=== PATIENT | male | born 1960 | race Caucasian/White ===

== ENCOUNTER → 2016-08-25 | Outpatient (CLI) | payer OTHER ==
[2016-08-25 09:47] LABS: CH 39.3; CHCM 36.8; HCT 49.1 % (39.0-53.0); HDW 2.62; HGB 17.4 gm/dL (13.0-17.5); MCH 37.9 pg (25.0-35.0); MCHC 35.4 g/dL (31.0-37.0); MCV 107.2 fL (80.0-100.0); Macrocytosis Moderate; Mean Platelet Volume 7.4; RBC 4.58 m/uL (4.30-5.90); RDW 13.2 % (11.5-15.5); WBC 5.5 k/uL (3.8-10.6)
[2016-08-25 10:35] LABS: ALT 79 U/L (21-72); AST 119 U/L (17-59); Alkaline Phosphatase 140 U/L (38-126); Anion Gap 14 mmol/L; Blood Urea Nitrogen 9 mg/dL (9-20); Calcium 9.8 mg/dL (8.4-10.2); Carbon Dioxide 23 mmol/L (22-30); Chloride 107 mmol/L (98-107); Cholesterol 216 mg/dL (<200); Glucose 103 mg/dL (74-99); HDL Cholesterol 56 mg/dL (40-60); Non-African American GFR(MDRD) >60 (>60 ml/min/1.73 sqM); Potassium 3.9 mmol/L (3.5-5.1); Sodium 144 mmol/L (137-145); Total Bilirubin 1.6 mg/dL (0.2-1.3); Total Protein 7.5 g/dL (6.3-8.2); Triglycerides 317 mg/dL (<150)
[2016-08-25 12:28] LABS: Vitamin B12 264 pg/mL (239-931)
== END | disposition home or self-care (01) ==
LOC: LABWHC1 08:55
PROVIDERS: ATTEND Family Medicine
DX: Z00.00 Encounter for general adult medical examination without abnormal findings (principal); I10 Essential (primary) hypertension; E53.9 Vitamin B deficiency, unspecified; E53.8 Deficiency of other specified B group vitamins
CPT/HCPCS: 36415; 80053; 80061; 82306; 82607; 82746; 84439; 84443; 85027

== ENCOUNTER → 2016-09-07 | Outpatient (CLI) | payer OTHER ==
--- NOTE | 2016-09-07 14:48 | CTL ---
EXAMINATION TYPE: CT Low Dose Lung DATE OF EXAM ORDERED: 09/07/2016 HISTORY: . Lung cancer screening CT DLP: 71.[address] CTDI: 2.0 mGy Automated exposure control for dose reduction was used. SCREENING VISIT: Screening exam COMPARISON: None TECHNIQUE: Low dose computed tomography scan was performed through the chest at 1 mm thick sections a nd reconstructed images in the coronal plane at [address] DIAGNOSTIC QUALITY: Satisfactory FINDINGS: LUNG NODULES: 1. 3 mm subpleural nodule right lung apex. 2. 2 mm subpleural nodule left lung apex. 3. 2 mm nodule posterior segment left upper lobe. 4. Calcified nodule 3 mm posterior segment right upper lobe. 5. 4 mm nodule lateral segment left lower lobe LUNGS: Lungs are clear with no evidence of focal pneumonia, pleural effusion or pneumothorax. Focal area of pleural-based calcification anteriorly within the left upper lobe. Subsegmental linear changes are se en involving both lungs most typical scar or atelectasis. Coronary artery calcification noted. Atherosclerotic change aorta. Proximal ascending aorta measures 4.1 cm compatible with mild aneurysmal dilation. Hypertrophic and degenerative change of the spine. Nonspecific sclerosis of the mid thoracic vertebra l segment IMPRESSION: Benign findings. Multiple pulmonary nodules as numbered above. Additionally there is mild aneurysmal dilation of the ascending aorta. FOLLOW UP CT CHEST RECOMMENDATION: 1 year follow-up CT LUNG RAD: Category 2
== END | disposition home or self-care (01) ==
LOC: RADCTMAIN 12:53
PROVIDERS: ATTEND Family Medicine
DX: Z12.2 Encounter for screening for malignant neoplasm of respiratory organs (principal); R91.8 Other nonspecific abnormal finding of lung field; I71.2 Thoracic aortic aneurysm, without rupture; Z87.891 Personal history of nicotine dependence

== ENCOUNTER → 2016-09-16 | Outpatient (CLI) | payer OTHER ==
--- NOTE | 2016-09-16 07:55 | US ---
EXAMINATION TYPE: US liver DATE OF EXAM: 09/16/2016 COMPARISON: US 06/09 CLINICAL HISTORY: R94.5 Abnormal Liver Function Test. no complaints of pain, abn labs EXAM MEASUREMENTS: Liver Length: 16.7 cm Gallbladder Wall: 0.2 cm CBD: 0.6 cm Right Kidney: 10.6 x 5.2 x 4.6 cm Some exam limitations due to overlying bowel gas. Pancreas: Obscured by bowel gas Liver: somewhat coarse echopattern, otherwise wnl Gallbladder: wnl Evidence for sonographic Duque's sign: no CBD: wnl Right Kidney: there is a lobular cortical appearance at the upper pole ?possible double collecting s ystem IMPRESSION: 1. No suspicious acute changes. 2. Some limitation due to bowel gas.
== END | disposition home or self-care (01) ==
LOC: RADUSWWP 07:29
PROVIDERS: ATTEND Family Medicine
DX: R94.5 Abnormal results of liver function studies (principal)
CPT/HCPCS: 76705

== ENCOUNTER → 2017-01-06 | Outpatient (CLI) | payer OTHER ==
[2017-01-06 12:11] LABS: Non-African American GFR(MDRD) >60 (>60 ml/min/1.73 sqM)
== END | disposition home or self-care (01) ==
LOC: LABWHC1 11:27
PROVIDERS: ATTEND Family Medicine
DX: M54.5 Low back pain (principal)
CPT/HCPCS: 36415; 82565

== ENCOUNTER → 2017-01-09 | Outpatient (CLI) | payer OTHER ==
--- NOTE | 2017-01-09 20:13 | MR ---
EXAMINATION TYPE: MR lumbar spine wo/w con DATE OF EXAM: 01/09/2017 COMPARISON: NONE HISTORY: 56-year-old male with low back pain, prior surgery in 2000 and 2003 Technique: Multiplanar, multisequence images of the lumbar spine were obtained before and after admin istration of 7.5 mL intravenous Gadavist gadolinium contrast FINDINGS: Vertebral body heights are preserved. Mild heterogeneous marrow signal without suspicious bone marrow replacement. Fatty matrix hemangioma within L1 vertebral body. Mild multilevel degenerative disc disease with a disc space narrowing, mild disc desiccation, and bul ging discs. 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 Hypertrophic facet arthropathy especially in the mid to lower lumbar spine. Prior surgery with L5-S1 laminectomy and interbody ankylosis of L5 and S1. Conus medullaris is normal. However, some images suggest clumping of the cauda equina nerve roots wit h decreased intervening CSF signal, for example, axial image 20. Grade 1 anterolisthesis at L4-L5. At T12-L1, no significant canal or foraminal stenosis. At L1-L2, minimal bulging disc without significant canal or foraminal stenosis. At L2-L3, minimal bulging disc with ligamentum flavum thickening and facet arthropathy. Changes resul t in mild spinal canal stenosis with mild left neuroforaminal stenosis. At L3-L4, there is bulging disc with ligamentum flavum thickening and hypertrophic facet arthropathy. Changes result in moderate canal stenosis with mild left greater than right neural foraminal stenosi s. At L4-L5, hypertrophic facet arthropathy with ligamentum flavum thickening, bulging disc, and grade 1 anterolisthesis. Changes result in a severe spinal canal stenosis with moderate to severe right and moderate left neural foraminal stenosis. It likely lateral recess stenosis with impingement of the tr aversing L5 nerve roots. Post surgical change opposite L5 with dorsal decompression of the spinal canal. At L5-S1, there is some enhancing perineural granulation tissue along the traversing right greater th an left S1 nerve roots, axial image 5. There is mild bilateral neural foraminal stenosis. No prevertebral or paravertebral soft tissue abnormality seen. Ectatic upper abdominal aorta at 2.5 c m. IMPRESSION: 1. Status post L5-S1 laminectomy change and interbody ankylosis. There is some perineural enhancing g ranulation tissue along the traversing right greater the left S1 nerve roots at this level, axial bertin ge 5. Mild bilateral neuroforaminal stenosis. 2. At L4-L5, above the vertebral fusion, there is marked hypertrophic facet arthropathy, ligamentum f lavum thickening, bulging disc, and grade 1 anterolisthesis. Changes result in severe spinal canal st enosis with moderate to severe right and moderate left neuroforaminal stenosis. There is also likely impingement of the bilateral traversing L5 nerve roots. 3. Moderate spinal canal stenosis at L3-L4. 4. Some clumped appearance to the cauda equina nerve roots may reflect arachnoiditis.
== END | disposition home or self-care (01) ==
LOC: RADMRIMAIN 11:05
PROVIDERS: ATTEND Family Medicine
DX: M48.061 Spinal stenosis, lumbar region without neurogenic claudication (principal); M43.27 Fusion of spine, lumbosacral region; M53.86 Other specified dorsopathies, lumbar region; M43.16 Spondylolisthesis, lumbar region; M51.26 Other intervertebral disc displacement, lumbar region; Z98.1 Arthrodesis status
CPT/HCPCS: 72158; A9581

== ENCOUNTER → 2017-08-29 | Outpatient (CLI) | payer OTHER ==
--- NOTE | 2017-08-29 14:23 | XR ---
EXAMINATION TYPE: XR chest 2V DATE OF EXAM: 08/29/2017 COMPARISON: NONE HISTORY: Presurgical evaluation TECHNIQUE: Frontal and lateral views of the chest are obtained. FINDINGS: There is no focal air space opacity, pleural effusion, or pneumothorax seen. There is slig ht eventration of the right hemidiaphragm. The cardiac silhouette size is within normal limits. The osseous structures are intact. [id number] multilevel degenerative changes of the thoracic spin e are noted. Acromioclavicular arthropathy is also seen, right greater than left. IMPRESSION: No acute cardiopulmonary process.
[2017-08-29 14:31] LABS: HCT 47.7 % (39.0-53.0); HGB 16.7 gm/dL (13.0-17.5); MCH 36.1 pg (25.0-35.0); MCV 103.3 fL (80.0-100.0); Macrocytosis Slight; Mean Platelet Volume 7.9; Platelet Count 155 k/uL (150-450); RBC 4.61 m/uL (4.30-5.90); RDW 13.2 % (11.5-15.5); WBC 6.9 k/uL (3.8-10.6)
[2017-08-29 14:39] LABS: INR 1.2 (<1.2); Partial Thromboplastin Time 25.1 sec (22.0-30.0); Prothrombin Time 11.2 sec (9.0-12.0)
[2017-08-29 14:48] LABS: Anion Gap 11 mmol/L; Blood Urea Nitrogen 12 mg/dL (9-20); Carbon Dioxide 29 mmol/L (22-30); Chloride 103 mmol/L (98-107); Potassium 4.4 mmol/L (3.5-5.1); Sodium 143 mmol/L (137-145)
[2017-08-29 15:16] LABS: Appearance,Urine Clear (Clear); Bilirubin,Urine 1+ (Negative); Blood,Urine Moderate (Negative); Color,Urine Dark Yellow; Glucose,Urine (UA) Negative (Negative); Ketones,Urine Trace (Negative); Leukocyte Esterase,Urine Negative (Negative); Mucus,Urine Moderate /hpf; Nitrite,Urine Negative (Negative); PH, Urine 6.5 (5.0-8.0); Protein,Urine 2+ (Negative); RBC,Urine 139 /hpf (0-5); Specific Gravity,Urine 1.019 (1.001-1.035); Squamous Epithelial Cell,Urine <1 /hpf (0-4); Urobilinogen,Urine >12.0 mg/dL (<2.0); WBC,Urine 8 /hpf (0-5)
== END | disposition home or self-care (01) ==
LOC: LABWHC1 13:17
PROVIDERS: ATTEND Neurological Surgery
DX: M48.062 Spinal stenosis, lumbar region with neurogenic claudication (principal)
CPT/HCPCS: 36415; 71046; 80051; 81001; 82565; 84520; 85027; 85610; 85730; 93005

== ENCOUNTER → 2017-10-12 | Outpatient (CLI) | payer OTHER ==
[2017-10-12 11:33] LABS: Basophils % (A) 1 %; Eosinophils # (A) 0.2 k/uL (0-0.7); Eosinophils % (A) 3 %; HCT 41.9 % (39.0-53.0); HGB 14.9 gm/dL (13.0-17.5); Lymphocytes # (A) 1.2 k/uL (1.0-4.8); Lymphocytes % (A) 19 %; MCH 37.3 pg (25.0-35.0); MCHC 35.6 g/dL (31.0-37.0); MCV 104.8 fL (80.0-100.0); Macrocytosis Slight; Mean Platelet Volume 7.3; Monocytes # (A) 0.4 k/uL (0-1.0); Monocytes % (A) 7 %; Neutrophils # (A) 4.6 k/uL (1.3-7.7); Neutrophils % (A) 70 %; Platelet Count 142 k/uL (150-450); WBC 6.6 k/uL (3.8-10.6)
== END | disposition home or self-care (01) ==
LOC: LABWHC1 10:53
PROVIDERS: ATTEND Nurse Practitioner Family
DX: Z47.89 Encounter for other orthopedic aftercare (principal); Z98.1 Arthrodesis status
CPT/HCPCS: 36415; 85025

== ENCOUNTER → 2017-12-28 | Outpatient (CLI) | payer OTHER ==
[2017-12-28 14:39] LABS: Basophils # (A) 0.1 k/uL (0-0.2); Basophils % (A) 1 %; Eosinophils # (A) 0.1 k/uL (0-0.7); Eosinophils % (A) 1 %; HCT 48.6 % (39.0-53.0); HGB 16.7 gm/dL (13.0-17.5); Lymphocytes # (A) 1.4 k/uL (1.0-4.8); Lymphocytes % (A) 18 %; MCH 35.7 pg (25.0-35.0); MCHC 34.5 g/dL (31.0-37.0); MCV 103.7 fL (80.0-100.0); Macrocytosis Slight; Mean Platelet Volume 7.5; Monocytes # (A) 0.5 k/uL (0-1.0); Monocytes % (A) 6 %; Neutrophils # (A) 5.9 k/uL (1.3-7.7); Neutrophils % (A) 72 %; Platelet Count 141 k/uL (150-450); RBC 4.69 m/uL (4.30-5.90); WBC 8.1 k/uL (3.8-10.6)
== END | disposition home or self-care (01) ==
LOC: LABWHC1 14:01
PROVIDERS: ATTEND Nurse Practitioner Family
DX: D69.6 Thrombocytopenia, unspecified (principal)
CPT/HCPCS: 36415; 85025

== ENCOUNTER → 2018-04-18 | Outpatient (CLI) | payer OTHER ==
--- NOTE | 2018-04-19 08:26 | CT ---
EXAMINATION TYPE: CT abdomen w con DATE OF EXAM: 04/18/2018 COMPARISON: None HISTORY: RUQ pain, Elevated LFTs CT DLP: 1022 mGycm CONTRAST: CT scan of the abdomen is performed with Oral Contrast and with IV Contrast, patient injected with 1 00 mL of Isovue 300. FINDINGS: LUNG BASES-: No visible nodule. No infiltrate. LIVER/GB: There is hepatomegaly with micronodular appearance felt to reflect cirrhotic liver disease. There is gallbladder distention without cholelithiasis or wall thickening. PANCREAS: No inflammation. No distinct mass. SPLEEN: No splenic enlargement. No lesion seen. ADRENALS: No nodule. No thickening. KIDNEYS/BLADDER: No hydronephrosis. Nonobstructing nephrolithiasis right kidney. No distinct renal m ass. Urinary bladder grossly unremarkable. BOWEL: Normal appendix. Normal bowel caliber. No inflammation. LYMPH NODES: No greater than 1cm abdominal or pelvic lymph nodes are appreciated. AORTA: No significant abnormality. OSSEOUS STRUCTURES: No significant abnormality is seen. OTHER: There is evidence for free fluid throughout the abdomen and. Varices are noted within the calderon gastric and perisplenic regions. IMPRESSION: 1. Findings compatible with cirrhotic liver disease with associated ascites and portal venous hyperte nsion.
== END | disposition home or self-care (01) ==
LOC: RADCTMAIN 16:42
PROVIDERS: ATTEND Family Medicine
DX: R10.11 Right upper quadrant pain (principal)
CPT/HCPCS: 74160; Q9967

== ENCOUNTER 2018-04-20 10:04 | Inpatient (IN) | payer OTHER ==
[2018-04-20] MEDS ORDERED: IPRATROPIUM 0.5 MG/2.5 ML NEBU INHALATION STA (10:20)
[2018-04-20] MEDS ORDERED: ALBUTEROL NEBULIZED 2.5 MG/3 ML INHALATION STA (10:20)
[2018-04-20 10:43] LABS: Basophils # (A) 0.1 k/uL (0-0.2); Basophils % (A) 1 %; Eosinophils # (A) 0.3 k/uL (0-0.7); Eosinophils % (A) 3 %; HCT 44.5 % (39.0-53.0); Lymphocytes # (A) 0.8 k/uL (1.0-4.8); Lymphocytes % (A) 10 %; MCH 38.4 pg (25.0-35.0); MCHC 33.8 g/dL (31.0-37.0); MCV 113.5 fL (80.0-100.0); Macrocytosis Marked; Mean Platelet Volume 8.5; Monocytes # (A) 0.5 k/uL (0-1.0); Monocytes % (A) 6 %; Neutrophils # (A) 5.7 k/uL (1.3-7.7); Neutrophils % (A) 77 %; Platelet Count 107 k/uL (150-450); RBC 3.92 m/uL (4.30-5.90); RDW 13.2 % (11.5-15.5); WBC 7.4 k/uL (3.8-10.6)
[2018-04-20] MEDS ORDERED: THIAMINE 100 MG/ML 2 ML VIAL IM STA (10:47)
[2018-04-20] MEDS ORDERED: LORazepam 2 MG/ML INJ IV PRN ×3 (10:47)
--- NOTE | 2018-04-20 10:52 | ED ---
General Adult HPI - General Chief complaint: Abdominal Pain Stated complaint: Abd Pain Time Seen by Provider: 04/20/18 10:15 Source: patient Mode of arrival: ambulatory Limitations: no limitations - History of Present Illness Initial comments: Dictation was produced using [employer] dictation software. please excuse any grammatical, word or spelling errors. Chief Complaint: 58-year-old male sent in by his primary care physician for abdominal pain. History of Present Illness: Is a 58-year-old male. He states he drinks proximal 1-2 pints of rum daily. Patient was sent in by his PCP for abdominal pain. Last week patient had a CT performed showing a abdominal ascites and findings to suggest liver cirrhosis. Patient denies any fever, chills or night sweats. He states his abdominal pain has been insidious. He reports that his pain is diffuse. Patient has no other complaints at this time. The ROS documented in this emergency department record has been reviewed and confirmed by me. Those systems with pertinent positive or negative responses have been documented in the HPI. All other systems are other negative and/or noncontributory. PHYSICAL EXAM: General Impression: Alert and oriented x3, not in acute distress, icteric HEENT: Normocephalic atraumatic, extra-ocular movements intact, pupils equal and reactive to light bilaterally, mucous membranes moist. Cardiovascular: Heart regular rate and rhythm, S1&S2 audible, no murmurs, rubs or gallops Chest: Lungs clear to auscultation bilaterally, no rhonchi, no wheeze, no rales Abdomen: Distended abdomen, diffuse abdominal tenderness to palpation Musculoskeletal: Pulses present and equal in all extremities, no peripheral edema Motor: no focal deficits noted Neurological: CN II-XII grossly intact, no focal motor or sensory deficits noted , no asterixis Psych: Normal affect and mood ED course: 58-year-old male sent in by primary care physician for increasing abdominal pain and new diagnosis of cirrhosis. Vital signs upon arrival are within acceptable limits. Patient is well-appearing. [facility] bedside ultrasound was performed showing abdominal ascites. Abdomen is tense or patient is not in any respiratory distress. He is a daily alcohol drinker. Patient is high risk for withdrawals.Serial protocol added. Laboratory evaluation obtained. CBC unremarkable. 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 Mild liver failure with INR 1.2. Metabolic panel is grossly unremarkable. Serum alcohol is less than 10. Patient appears comfortable at this time. No signs of withdrawal. Patient admitted to [facility] for GI consultation and likely paracentesis for symptomatically studies. EKG interpretation: Ventricular rate 59, sinus bradycardia, MS interval 114, QS 92, QTC 475. No MS prolongation, no QTC prolongation, no ST or T-wave changes noted. Overall, this EKG is unremarkable - Related Data Home Medications Medication Instructions Recorded Confirmed Metoprolol Tartrate [Lopressor] 100 mg PO DAILY 07/29/13 04/20/18 Omeprazole [PriLOSEC] 20 mg PO DAILY 07/29/13 04/20/18 amLODIPine BESYLATE [Norvasc] 5 mg PO DAILY 07/29/13 04/20/18 Fluticasone Nasal [place] [Flonase 2 spr EA NOSTRIL DAILY 04/20/18 04/20/18 Nasal [place]] HYDROcodone/APAP 10-325MG [[place] 1 tab PO DAILY PRN 04/20/18 04/20/18 10-325] Levothyroxine Sodium [Synthroid] 50 mcg PO DAILY 04/20/18 04/20/18 Meloxicam 15 mg PO DAILY 04/20/18 04/20/18 rOPINIRole HCL [Requip] 0.25 mg PO BID 04/20/18 04/20/18 Allergies Allergy/AdvReac Type Severity Reaction Status Date / Time No Known Allergies Allergy Verified 04/20/18 11:03 Review of Systems ROS Statement: Those systems with pertinent positive or pertinent negative responses have been documented in the HPI. ROS Other: All systems not noted in ROS Statement are negative. 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), gout, hx melanoma History of Any Multi-Drug Resistant Organisms: None Reported Past Surgical History: Back Surgery, Hernia Repair Additional Past Surgical History / Comment(s): back-plate,screws and pins/later removed, melanoma removed from rt hand, colonoscopy Past Anesthesia/Blood Transfusion Reactions: No Reported Reaction Past Psychological History: No Psychological Hx Reported Smoking Status: Current every day smoker Past Alcohol Use History: Daily Past Drug Use History: None Reported - Past Family History Mother Family Medical History: No Reported History General Exam Limitations: no limitations Course Vital Signs 04/20/18 04/20/18 10:06 11:31 Temperature 98.1 F 98.4 F Pulse Rate 87 54 L Respiratory 20 18 Rate Blood Pressure 142/71 143/78 O2 Sat by Pulse 99 Oximetry Medical Decision Making - Lab Data Result diagrams: 04/20/18 10:28 04/20/18 10:28 Lab Results 04/20/18 04/20/18 04/20/18 Range/Units 10:28 10:28 10:28 WBC 7.4 (3.8-10.6) k/uL RBC 3.92 L (4.30-5.90) m/uL Hgb 15.0 (13.0-17.5) gm/dL Hct 44.5 (39.0-53.0) % MCV 113.5 H (80.0-100.0) fL MCH 38.4 H (25.0-35.0) pg MCHC 33.8 (31.0-37.0) g/dL RDW 13.2 (11.5-15.5) % Plt Count 107 L (150-450) k/uL Neutrophils % 77 % Lymphocytes % 10 % Monocytes % 6 % Eosinophils % 3 % Basophils % 1 % Neutrophils # 5.7 (1.3-7.7) k/uL Lymphocytes # 0.8 L (1.0-4.8) k/uL Monocytes # 0.5 (0-1.0) k/uL Eosinophils # 0.3 (0-0.7) k/uL Basophils # 0.1 (0-0.2) k/uL Manual Slide Review Performed Macrocytosis Marked PT 12.6 H (9.0-12.0) sec INR 1.2 H (<1.2) Sodium 137 (137-145) mmol/L Potassium 4.3 (3.5-5.1) mmol/L Chloride 101 (98-107) mmol/L Carbon Dioxide 25 (22-30) mmol/L Anion Gap 11 mmol/L BUN 8 L (9-20) mg/dL Creatinine 0.69 (0.66-1.25) mg/dL Est GFR (CKD-EPI)AfAm >90 (>60 ml/min/1.73 sqM) Est GFR (CKD-EPI)NonAf >90 (>60 ml/min/1.73 sqM) Glucose 106 H (74-99) mg/dL Calcium 9.2 (8.4-10.2) mg/dL Magnesium 1.6 (1.6-2.3) mg/dL Total Bilirubin 7.1 H (0.2-1.3) mg/dL Conjugated Bilirubin 2.3 H (0.0-0.3) mg/dL Unconjugated Bilirubin 2.2 H (0.0-1.1) mg/dL Delta Bilirubin 2.6 H (0.0-0.2) mg/dL AST 190 H (17-59) U/L ALT 76 H (21-72) U/L Alkaline Phosphatase 298 H (38-126) U/L Total Protein 7.9 (6.3-8.2) g/dL Albumin 3.8 (3.5-5.0) g/dL Lipase 197 (23-300) U/L Serum Alcohol <10 mg/dL Disposition Clinical Impression: Cirrhosis Disposition: ADMITTED IP TO THIS HOSP Condition: Fair Referrals: Tricia Blackwell MD [Primary Care Provider] - 1-2 days Decision Time: 12:44
[2018-04-20 10:55] LABS: ALT 76 U/L (21-72); AST 190 U/L (17-59); Albumin 3.8 g/dL (3.5-5.0); Alcohol <10 mg/dL; Alkaline Phosphatase 298 U/L (38-126); Anion Gap 11 mmol/L; Bilirubin, Conjugated 2.3 mg/dL (0.0-0.3); Bilirubin, Delta 2.6 mg/dL (0.0-0.2); Bilirubin,Unconjugated 2.2 mg/dL (0.0-1.1); Blood Urea Nitrogen 8 mg/dL (9-20); Calcium 9.2 mg/dL (8.4-10.2); Carbon Dioxide 25 mmol/L (22-30); Chloride 101 mmol/L (98-107); Glucose 106 mg/dL (74-99); Lipase 197 U/L (23-300); Magnesium 1.6 mg/dL (1.6-2.3); Potassium 4.3 mmol/L (3.5-5.1); Sodium 137 mmol/L (137-145); Total Bilirubin 7.1 mg/dL (0.2-1.3); Total Protein 7.9 g/dL (6.3-8.2)
[2018-04-20 11:20] LABS: INR 1.2 (<1.2); Prothrombin Time 12.6 sec (9.0-12.0)
[2018-04-20] MEDS ORDERED: NALOXONE 0.4 MG/ML 1 ML VIAL IV PRN ×2 (12:20→13:21)
[2018-04-20] MEDS ORDERED: SODIUM CHLORIDE 0.9% 1,000 ML IV SCH (12:30)
--- NOTE | 2018-04-20 13:14 | P.HPIM ---
History of Present Illness H&P Date: 04/20/18 Patient admitted to the hospital with abdominal pain that has been going for the last few weeks that has been getting worse went disease primary care physician ordered a computed tomography scan of the abdomen showed ascites and liver cirrhosis the computed tomography scan was done on Monday patient states that the abdominal pain is still there and the distention is still there but doesn't have any vomiting doesn't have any rectal bleeding at this time states that from time to time he does have episodes of slight rectal bleeding but currently none at this time and denies any black stool denies any confusion Patient drinks alcohol daily for a long time Denies any chest pain or shortness of breath Review of systems and systems has been reviewed all negative and positive findings as per history of present illness Past Medical History: C , CVA/TIA, Hypertension Additional Past Medical History / Comment(s): 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), gout, hx melanoma History of Any Multi-Drug Resistant Organisms: None Reported Past Surgical History: Back Surgery, Hernia Repair Additional Past Surgical History / Comment(s): back-plate,screws and pins/later removed, melanoma removed from rt hand, colonoscopy Past Anesthesia/Blood Transfusion Reactions: No Reported Reaction Past Psychological History: No Psychological Hx Reported Smoking Status: Current every day smoker Past Alcohol Use History: Daily Past Drug Use History: None Reported Constitutional: No acute distress, conversant, pleasant Eyes: , moist conjunctiva, ENMT: Cranial nerves grossly intact Neck: Supple, FROM, no masses, or JVD No carotid bruits No thyromegaly Lungs: Clear to auscultation Cardiovascular: Heart regular in rate and rhythm, No murmurs, gallops, or rubs No peripheral edema Abdominal: Soft distended very minimal epigastric tenderness Skin: Normal temperature, tone, texture, turgor No induration No subcutaneous nodules No rash, lesions No ulcers Extremities: No digital cyanosis No clubbing Pedal pulses intact and symmetrical Radial pulses intact and symmetrical Normal gait and station No calf tenderness Psychiatric:Alert and oriented to person, place and time Appropriate affect Intact judgement Neuro: Generalized weakness Vital Signs - 8 hr 04/20/18 04/20/18 10:06 11:31 Temperature 98.1 F 98.4 F Pulse Rate 87 54 L Respiratory 20 18 Rate Blood Pressure 142/71 143/78 O2 Sat by Pulse 99 Oximetry Laboratory Results - last 24 hr 04/20/18 04/20/18 04/20/18 10:28 10:28 10:28 WBC 7.4 RBC 3.92 L Hgb 15.0 Hct 44.5 MCV 113.5 H MCH 38.4 H MCHC 33.8 RDW 13.2 Plt Count 107 L Neutrophils % 77 Lymphocytes % 10 Monocytes % 6 Eosinophils % 3 Basophils % 1 Neutrophils # 5.7 Lymphocytes # 0.8 L Monocytes # 0.5 Eosinophils # 0.3 Basophils # 0.1 Manual Slide Review Performed Macrocytosis Marked PT 12.6 H INR 1.2 H Sodium 137 Potassium 4.3 Chloride 101 Carbon Dioxide 25 Anion Gap 11 BUN 8 L Creatinine 0.69 Est GFR (CKD-EPI)AfAm >90 Est GFR (CKD-EPI)NonAf >90 Glucose 106 H Calcium 9.2 Magnesium 1.6 Total Bilirubin 7.1 H Conjugated Bilirubin 2.3 H Unconjugated Bilirubin 2.2 H Delta Bilirubin 2.6 H AST 190 H ALT 76 H Alkaline Phosphatase 298 H Total Protein 7.9 Albumin 3.8 Lipase 197 Serum Alcohol <10 Symptomatic ascites likely from liver cirrhosis patient likely need paracentesis we will consult gastroenterology Newly diagnosed liver cirrhosis likely from chronic alcohol abuse Nonspecific abdominal pain likely from distention and abdominal ascites Alcohol abuse no evidence of withdrawals at this time but will put the patient on CIWA protocol Hypertension DVT and GI prophylaxis we will avoid any Lovenox or heparin due to the mild thrombocytopenia from liver cirrhosis History of episodic rectal bleeding currently no evidence of bleeding will monitor GI has been consulted Admit the patient to regular medical floor 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), gout, hx melanoma History of Any Multi-Drug Resistant Organisms: None Reported Past Surgical History: Back Surgery, Hernia Repair Additional Past Surgical History / Comment(s): back-plate,screws and pins/later removed, melanoma removed from rt hand, colonoscopy Past Anesthesia/Blood Transfusion Reactions: No Reported Reaction Past Psychological History: No Psychological Hx Reported Smoking Status: Current every day smoker Past Alcohol Use History: Daily Past Drug Use History: None Reported - Past Family History Mother Family Medical History: No Reported History Medications and Allergies Home Medications Medication Instructions Recorded Confirmed Type Metoprolol Tartrate [Lopressor] 100 mg PO DAILY 07/29/13 04/20/18 History Omeprazole [PriLOSEC] 20 mg PO DAILY 07/29/13 04/20/18 History amLODIPine BESYLATE [Norvasc] 5 mg PO DAILY 07/29/13 04/20/18 History Fluticasone Nasal [place] [Flonase 2 spr EA NOSTRIL DAILY 04/20/18 04/20/18 History Nasal [place]] HYDROcodone/APAP 10-325MG [[place] 1 tab PO DAILY PRN 04/20/18 04/20/18 History 10-325] Levothyroxine Sodium [Synthroid] 50 mcg PO DAILY 04/20/18 04/20/18 History Meloxicam 15 mg PO DAILY 04/20/18 04/20/18 History rOPINIRole HCL [Requip] 0.25 mg PO BID 04/20/18 04/20/18 History Allergies Allergy/AdvReac Type Severity Reaction Status Date / Time No Known Allergies Allergy Verified 04/20/18 11:03 Physical Exam Vitals: Vital Signs Temp Pulse Resp BP Pulse Ox 04/20/18 11:31 98.4 F 54 L 18 143/78 04/20/18 10:06 98.1 F 87 20 142/71 99 Intake and Output 04/19/18 04/20/18 04/20/18 22:59 06:59 14:59 Other: Weight 80.739 kg Results CBC & Chem 7: 04/20/18 10:28 04/20/18 10:28 Labs: Abnormal Lab Results - Last 24 Hours (Table) 04/20/18 04/20/18 04/20/18 Range/Units 10:28 10:28 10:28 RBC 3.92 L (4.30-5.90) m/uL MCV 113.5 H (80.0-100.0) fL MCH 38.4 H (25.0-35.0) pg Plt Count 107 L (150-450) k/uL Lymphocytes # 0.8 L (1.0-4.8) k/uL PT 12.6 H (9.0-12.0) sec INR 1.2 H (<1.2) BUN 8 L (9-20) mg/dL Glucose 106 H (74-99) mg/dL Total Bilirubin 7.1 H (0.2-1.3) mg/dL Conjugated Bilirubin 2.3 H (0.0-0.3) mg/dL Unconjugated Bilirubin 2.2 H (0.0-1.1) mg/dL Delta Bilirubin 2.6 H (0.0-0.2) mg/dL AST 190 H (17-59) U/L ALT 76 H (21-72) U/L Alkaline Phosphatase 298 H (38-126) U/L
[2018-04-20] MEDS ORDERED: ONDANSETRON 4 MG/2 ML VIAL IVP PRN (13:21)
[2018-04-20] MEDS: traMADol 50 MG TAB PO PRN ×2 (13:54→21:36)
[2018-04-20] MEDS ORDERED: FUROSEMIDE 10 MG/ML 4 ML VIAL IV STA (14:51)
[2018-04-20] MEDS: MULTIVITAMINS, THERA 1 EACH TAB PO SCH (16:24)
[2018-04-20] MEDS: PANTOPRAZOLE 40 MG TABLET PO SCH (16:25)
[2018-04-20] MEDS: THIAMINE 100 MG TAB PO SCH (16:25)
[2018-04-20] MEDS: chlordiazePOXIDE 25 MG CAP PO SCH ×2 (16:25→21:36)
[2018-04-20 16:40] VITALS: BMI 26.1
[2018-04-20] MEDS: FUROSEMIDE 10 MG/ML 2 ML VIAL IV SCH (21:36)
[2018-04-21] MEDS: PANTOPRAZOLE 40 MG TABLET PO SCH (06:41)
[2018-04-21] MEDS: LEVOTHYROXINE 50 MCG TAB PO SCH (06:41)
[2018-04-21 07:08] LABS: Basophils % (A) 1 %; Eosinophils # (A) 0.2 k/uL (0-0.7); Eosinophils % (A) 4 %; HCT 42.5 % (39.0-53.0); HGB 13.8 gm/dL (13.0-17.5); Lymphocytes # (A) 1.1 k/uL (1.0-4.8); Lymphocytes % (A) 20 %; MCH 37.3 pg (25.0-35.0); MCHC 32.4 g/dL (31.0-37.0); MCV 115.2 fL (80.0-100.0); Macrocytosis Marked; Mean Platelet Volume 8.8; Monocytes # (A) 0.4 k/uL (0-1.0); Monocytes % (A) 7 %; Neutrophils # (A) 3.7 k/uL (1.3-7.7); Neutrophils % (A) 66 %; RBC 3.69 m/uL (4.30-5.90); RDW 13.4 % (11.5-15.5); WBC 5.6 k/uL (3.8-10.6)
[2018-04-21 07:29] LABS: ALT 62 U/L (21-72); AST 151 U/L (17-59); Albumin 3.2 g/dL (3.5-5.0); Alkaline Phosphatase 255 U/L (38-126); Anion Gap 8 mmol/L; Blood Urea Nitrogen 12 mg/dL (9-20); Calcium 8.6 mg/dL (8.4-10.2); Carbon Dioxide 29 mmol/L (22-30); Chloride 98 mmol/L (98-107); Glucose 82 mg/dL (74-99); Potassium 4.2 mmol/L (3.5-5.1); Sodium 135 mmol/L (137-145); Total Bilirubin 8.3 mg/dL (0.2-1.3); Total Protein 6.8 g/dL (6.3-8.2)
[2018-04-21] MEDS: METOPROLOL TARTRATE 50 MG TAB PO SCH (09:06)
[2018-04-21] MEDS: traMADol 50 MG TAB PO PRN (09:07)
[2018-04-21] MEDS: chlordiazePOXIDE 25 MG CAP PO SCH ×3 (09:07→22:04)
[2018-04-21] MEDS: MULTIVITAMINS, THERA 1 EACH TAB PO SCH (09:07)
[2018-04-21] MEDS: THIAMINE 100 MG TAB PO SCH ×2 (09:07→15:28)
[2018-04-21] MEDS: FUROSEMIDE 10 MG/ML 2 ML VIAL IV SCH ×2 (09:07→22:04)
[2018-04-21] MEDS: FLUTICASONE 50MCG/SPRAY NASAL 16GM EA NOSTRIL SCH (09:08)
[2018-04-21 09:13] LABS: Platelet Count 82 k/uL (150-450)
[2018-04-21 09:16] LABS: Large Platelets Present
--- NOTE | 2018-04-21 10:00 | P.PN ---
Subjective Progress Note Date: 04/21/18 The patient complained of moderate epigastric abdominal pain radiating from the left to the right side of his abdomen, some mild nausea, reports to loose stools. Reports his last drink was on at 10 PM. Patient denies any itchiness. No acute events overnight Objective - Vital Signs Vital signs: Vital Signs Temp 98.2 F 04/21/18 07:55 Pulse 66 04/21/18 08:00 Resp 18 04/21/18 08:00 BP 145/72 04/21/18 07:55 Pulse Ox 97 04/21/18 07:55 Intake & Output 04/20/18 04/21/18 04/21/18 18:59 06:59 18:59 Intake Total 600 40 360 Output Total 600 Balance 600 -560 360 Weight 80.739 kg 78.9 kg Intake: Intake, IV Titration 40 Amount Sodium Chloride 0.9% 1, 40 000 ml @ 20 mls/hr IV . Q24H WANDA Rx#:[id number] Oral 600 360 Output: Urine 600 Other: Voiding Method Urinal Urinal # Voids 1 1 - Exam Constitutional: No acute distress, conversant, pleasant Eyes: Anicteric sclerae, moist conjunctiva, no lid-lag, PERRLA ENMT: NC/AT,Oropharynx clear, no erythema, exudates Neck:Supple, FROM, no masses, or JVD, No carotid bruits; No thyromegaly Lungs: Clear to auscultation, Clear to percussion, Normal respiratory effort, no accessory muscle use Cardiovascular: Heart regular in rate and rhythm, No murmurs, gallops, or rubs no peripheral edema Abdominal: Soft tender to palpation, distended and tight, no guarding, no rebound or rigidity, shifting dullness Skin: Normal temperature, tone, texture, turgor, No induration No subcutaneous nodules, No rash, lesions, No ulcers Extremities:No digital cyanosis No clubbing, Pedal pulses intact and symmetrical Radial pulses intact and symmetrical Normal gait and station, No calf tenderness Psychiatric: Alert and oriented to person, place and time, Appropriate affect Intact judgement Neuro: Muscles Strength 5/5 in all 4 extremities, Sensation to light touch grossly present throughout, Cranial nerves II-XII grossly intact. No focal sensory deficits - Labs CBC & Chem 7: 04/21/18 06:43 04/21/18 06:43 Labs: Abnormal Lab Results - Last 24 Hours (Table) 04/20/18 04/20/18 04/20/18 Range/Units 10:28 10:28 10:28 RBC 3.92 L (4.30-5.90) m/uL MCV 113.5 H (80.0-100.0) fL MCH 38.4 H (25.0-35.0) pg Plt Count 107 L (150-450) k/uL Lymphocytes # 0.8 L (1.0-4.8) k/uL PT 12.6 H (9.0-12.0) sec INR 1.2 H (<1.2) Sodium (137-145) mmol/L BUN 8 L (9-20) mg/dL Glucose 106 H (74-99) mg/dL Total Bilirubin 7.1 H (0.2-1.3) mg/dL Conjugated Bilirubin 2.3 H (0.0-0.3) mg/dL Unconjugated Bilirubin 2.2 H (0.0-1.1) mg/dL Delta Bilirubin 2.6 H (0.0-0.2) mg/dL AST 190 H (17-59) U/L ALT 76 H (21-72) U/L Alkaline Phosphatase 298 H (38-126) U/L Albumin (3.5-5.0) g/dL 04/21/18 04/21/18 Range/Units 06:43 06:43 RBC 3.69 L (4.30-5.90) m/uL MCV 115.2 H (80.0-100.0) fL MCH 37.3 H (25.0-35.0) pg Plt Count 82 L (150-450) k/uL Lymphocytes # (1.0-4.8) k/uL PT (9.0-12.0) sec INR (<1.2) Sodium 135 L (137-145) mmol/L BUN (9-20) mg/dL Glucose (74-99) mg/dL Total Bilirubin 8.3 H (0.2-1.3) mg/dL Conjugated Bilirubin (0.0-0.3) mg/dL Unconjugated Bilirubin (0.0-1.1) mg/dL Delta Bilirubin (0.0-0.2) mg/dL AST 151 H (17-59) U/L ALT (21-72) U/L Alkaline Phosphatase 255 H (38-126) U/L Albumin 3.2 L (3.5-5.0) g/dL Assessment and Plan (1) Alcoholic cirrhosis of liver with ascites Narrative/Plan: * Previous abdominal CT done on 04/18 compatible with liver cirrhosis with associated ascites and portal venous hypertension * Initiated on Lasix and spironolactone * Consult to GI * We'll likely need abdominal paracentesis Current Visit: Yes Status: Acute Code(s): K70.31 - ALCOHOLIC CIRRHOSIS OF LIVER WITH ASCITES SNOMED Code(s): 251504976 (2) Ascites due to alcoholic cirrhosis Narrative/Plan: * Patient will likely need IR consult for ultrasound-guided paracentesis * GI consulted for further recommendations * Continue diuresis with Lasix 20 mg IV twice a day * Place patient on fluid restriction and DC IV fluids Current Visit: Yes Status: Acute Code(s): K70.31 - ALCOHOLIC CIRRHOSIS OF LIVER WITH ASCITES SNOMED Code(s): 6066321508176486 (3) Thrombocytopenia Narrative/Plan: * Likely secondary to alcoholic cirrhosis * No evidence of acute bleed hemoglobin stable * Continue to monitor Current Visit: Yes Status: Acute Code(s): D69.6 - THROMBOCYTOPENIA, UNSPECIFIED SNOMED Code(s): 528621545 (4) Abdominal pain Narrative/Plan: * Initiated patient on oxycodone when necessary for pain Current Visit: Yes Status: Acute Code(s): R10.9 - UNSPECIFIED ABDOMINAL PAIN SNOMED Code(s): 84295534 (5) Alcohol dependence Narrative/Plan: * Continue symptom triggered CIWA protocol * No signs of severe withdrawals as yet currently is still in the window for potentially severe withdrawals * Continue to monitor Current Visit: Yes Status: Acute Code(s): F10.20 - ALCOHOL DEPENDENCE, UNCOMPLICATED SNOMED Code(s): 15643348 Plan: disposition * Anticipated discharge in 2 days
--- NOTE | 2018-04-21 16:39 | P.CONS ---
History of Present Illness - Reason for Consult Consult date: 04/21/18 Ascites, cirrhosis Requesting physician: Tj Lawson - Chief Complaint Abdominal pain and distention - History of Present Illness 58-year-old male with a medical history significant for gout, hypertension, previous melanoma, alcohol abuse and recent diagnosis of cirrhosis who presented to the hospital with complaints of abdominal pain and distention. The patient reports worsening abdominal pain and distention over the past few weeks. He recently had a outpatient computed tomography scan of the abdomen on 04/26/18 poor mastication of his symptoms with findings compatible with cirrhosis, ascites and portal hypertension. A she has a long history of alcohol abuse, reporting daily alcohol use since 1972. Prior to his recent finding on CT the patient denies any prior history of liver disease. He denies any prior paracentesis, upper GI bleeds or confusion consistent with hepatic encephalopathy. The patient did have investigation with an upper endoscopy approximately 7 years ago which she reports was for reflux disease and believes his last colonoscopy was in 2011 or 2012 with no significant findings at that time. He denies any change in his bowel habits, or signs or symptoms of GI bleeding. No fevers, chills or night sweats at home. Review of Systems REVIEW OF SYSTEMS: CONSTITUTIONAL: Denies any fevers, chills, weight change or fatigue. CARDIOVASCULAR: Denies any chest pain, palpitations high or low blood pressures RESPIRATORY: Denies any shortness of breath, hemoptysis or cough. GENITOURINARY: No dysuria or hematuria. MUSCULOSKELETAL: No weakness reported. SKIN: Denies any new rashes or lesions, jaundice or pallor. PSYCHIATRIC: Denies any depression or anxiety. NEUROLOGY: Denies headache, denies any new focal deficits. EARS/NOSE/THROAT: No recent hearing change, congestion, nasal discharge or sore throat. EYES: No pain in eyes, discharge or change in vision. GASTROINTESTINAL: As per HPI. 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), gout, hx melanoma History of Any Multi-Drug Resistant Organisms: None Reported Past Surgical History: Back Surgery, Hernia Repair Additional Past Surgical History / Comment(s): back-plate,screws and pins/later removed, melanoma removed from rt hand, colonoscopy Past Anesthesia/Blood Transfusion Reactions: No Reported Reaction Past Psychological History: No Psychological Hx Reported Smoking Status: Current every day smoker Past Alcohol Use History: Daily Additional Past Alcohol Use History / Comment(s): smoked since 1960s, smokes 1- 2 PPD Past Drug Use History: Marijuana - Past Family History Mother Family Medical History: No Reported History Father History Unknown: Yes Medications and Allergies Home Medications Medication Instructions Recorded Confirmed Type Metoprolol Tartrate [Lopressor] 100 mg PO DAILY 07/29/13 04/20/18 History Omeprazole [PriLOSEC] 20 mg PO DAILY 07/29/13 04/20/18 History amLODIPine BESYLATE [Norvasc] 5 mg PO DAILY 07/29/13 04/20/18 History Fluticasone Nasal [place] [Flonase 2 spr EA NOSTRIL DAILY 04/20/18 04/20/18 History Nasal [place]] HYDROcodone/APAP 10-325MG [[place] 1 tab PO DAILY PRN 04/20/18 04/20/18 History 10-325] Levothyroxine Sodium [Synthroid] 50 mcg PO DAILY 04/20/18 04/20/18 History Meloxicam 15 mg PO DAILY 04/20/18 04/20/18 History rOPINIRole HCL [Requip] 0.25 mg PO BID 04/20/18 04/20/18 History Allergies Allergy/AdvReac Type Severity Reaction Status Date / Time No Known Allergies Allergy Verified 04/20/18 11:03 Physical Exam Vitals: Vital Signs Temp Pulse Resp BP Pulse Ox 04/21/18 15:00 98.2 F 60 16 109/66 94 L 04/21/18 08:00 66 18 04/21/18 07:55 98.2 F 66 18 145/72 97 04/21/18 04:00 97.6 F 67 18 140/70 97 04/21/18 00:00 98.4 F 67 17 119/75 94 L 04/20/18 20:00 97.3 F L 66 18 132/70 93 L Intake and Output 04/21/18 04/21/18 04/21/18 06:59 14:59 22:59 Intake Total 370 Output Total 600 Balance -600 370 Intake: IV 10 Invasive Line 1 10 Oral 360 Output: Urine 600 Other: Voiding Method Urinal Urinal Urinal # Voids 1 1 Weight 78.9 kg On physical examination, patient appears comfortable in no apparent distress. HEAD: Normocephalic, atraumatic. EYES: No scleral icterus. No conjunctival injection. MOUTH: No lesions, tongue midline. NECK: Trachea midline, no gross abnormalities. CHEST: Clear to auscultation with no wheezing or rhonchi appreciated. HEART: Regular rate and rhythm. ABDOMEN: Soft, obese, distended with positive fluid wave. Tender to palpation in all areas of his abdomen. Bowel sounds are positive. No organomegaly. No guarding or rigidity. EXTREMITIES: No pedal edema. SKIN: No rashes, no jaundice. NEUROLOGIC: Alert and oriented x3. No asterixis noted. No focal deficits. Results CBC & Chem 7: 04/21/18 06:43 04/21/18 06:43 Labs: Abnormal Lab Results - Last 24 Hours (Table) 04/21/18 04/21/18 Range/Units 06:43 06:43 RBC 3.69 L (4.30-5.90) m/uL MCV 115.2 H (80.0-100.0) fL MCH 37.3 H (25.0-35.0) pg Plt Count 82 L (150-450) k/uL Sodium 135 L (137-145) mmol/L Total Bilirubin 8.3 H (0.2-1.3) mg/dL AST 151 H (17-59) U/L Alkaline Phosphatase 255 H (38-126) U/L Albumin 3.2 L (3.5-5.0) g/dL CT scan - abdomen: report reviewed (Computed tomography scan of the abdomen with findings consistent with cirrhosis, ascites and portal hypertension.) Assessment and Plan (1) Alcoholic cirrhosis of liver with ascites Narrative/Plan: Patient presenting with reports of worsening abdominal pain and distention, with outpatient computed tomography scan with findings consistent with cirrhosis , portal hypertension and new onset ascites. The patient denies any prior history of cirrhosis or decompensated liver disease with no prior paracentesis, esophageal bleeds from varices, or encephalopathy. The patient reports a history of alcohol abuse with daily consumption of alcohol for over 40 years. Current Visit: Yes Status: Acute Code(s): K70.31 - ALCOHOLIC CIRRHOSIS OF LIVER WITH ASCITES SNOMED Code(s): 511360891 (2) Abdominal pain Current Visit: Yes Status: Acute Code(s): R10.9 - UNSPECIFIED ABDOMINAL PAIN SNOMED Code(s): 39985625 (3) Alcohol dependence Current Visit: Yes Status: Acute Code(s): F10.20 - ALCOHOL DEPENDENCE, UNCOMPLICATED SNOMED Code(s): 21438223 (4) Elevated liver enzymes Narrative/Plan: Elevation in patient's liver enzymes are consistent with his known history of alcoholic cirrhosis Current Visit: Yes Status: Acute Code(s): R74.8 - ABNORMAL LEVELS OF OTHER SERUM ENZYMES SNOMED Code(s): 733357348 Plan: Supportive care Okay for sodium restricted diet Agree with the addition of Lasix 20 mg twice a day and Aldactone 25 mg daily to the patient's medical regimen, can titrate for adequate diuresis We will order ultrasound-guided paracentesis at this time with fluid studies including protein, albumin, cell count and differential and culture Although the patient does not have findings of leukocytosis or fever to suggest spontaneous bacterial peritonitis will add ceftriaxone daily given complaints of abdominal pain until fluid studies from abdomen can be drawn Alcohol abstinence Watch for signs or symptoms of alcohol withdrawal Thank you for allowing us to participate in the care of the patient we will continue to follow
[2018-04-22] MEDS: LEVOTHYROXINE 50 MCG TAB PO SCH (06:03)
[2018-04-22 07:43] LABS: Basophils % (A) 1 %; Eosinophils # (A) 0.2 k/uL (0-0.7); Eosinophils % (A) 4 %; HCT 41.7 % (39.0-53.0); HGB 13.9 gm/dL (13.0-17.5); Lymphocytes # (A) 1.3 k/uL (1.0-4.8); Lymphocytes % (A) 21 %; MCH 37.8 pg (25.0-35.0); MCHC 33.5 g/dL (31.0-37.0); MCV 112.9 fL (80.0-100.0); Macrocytosis Marked; Monocytes # (A) 0.4 k/uL (0-1.0); Monocytes % (A) 6 %; Neutrophils # (A) 3.9 k/uL (1.3-7.7); Neutrophils % (A) 66 %; RBC 3.69 m/uL (4.30-5.90); RDW 13.2 % (11.5-15.5)
[2018-04-22 07:47] LABS: Platelet Count 87 k/uL (150-450)
[2018-04-22 07:55] LABS: ALT 54 U/L (21-72); AST 131 U/L (17-59); Alkaline Phosphatase 244 U/L (38-126); Anion Gap 6 mmol/L; Blood Urea Nitrogen 13 mg/dL (9-20); Calcium 8.5 mg/dL (8.4-10.2); Carbon Dioxide 31 mmol/L (22-30); Chloride 97 mmol/L (98-107); Glucose 85 mg/dL (74-99); Sodium 134 mmol/L (137-145); Total Bilirubin 6.9 mg/dL (0.2-1.3); Total Protein 6.6 g/dL (6.3-8.2)
[2018-04-22] MEDS: MULTIVITAMINS, THERA 1 EACH TAB PO SCH (08:11)
[2018-04-22] MEDS: FUROSEMIDE 10 MG/ML 2 ML VIAL IV SCH ×2 (08:11→22:16)
[2018-04-22] MEDS: chlordiazePOXIDE 25 MG CAP PO SCH ×3 (08:11→22:16)
[2018-04-22] MEDS: PANTOPRAZOLE 40 MG TABLET PO SCH (08:11)
[2018-04-22] MEDS: SPIRONOLACTONE 25 MG TAB PO SCH (08:11)
[2018-04-22] MEDS: THIAMINE 100 MG TAB PO SCH ×2 (08:11→15:52)
[2018-04-22] MEDS: METOPROLOL TARTRATE 50 MG TAB PO SCH (08:11)
[2018-04-22] MEDS: FLUTICASONE 50MCG/SPRAY NASAL 16GM EA NOSTRIL SCH (08:12)
--- NOTE | 2018-04-22 09:16 | P.PN ---
Subjective Progress Note Date: 04/22/18 The patient complained of mild epigastric pain that is tolerable with pain medication, patient reports slight improvement of his abdominal distention, denies shortness of breath Reports his last drink was on at 10 PM. Patient denies any itchiness. No acute events overnight Objective - Vital Signs Vital signs: Vital Signs Temp 98.6 F 04/22/18 07:00 Pulse 76 04/22/18 07:00 Resp 16 04/22/18 07:00 BP 130/69 04/22/18 07:00 Pulse Ox 95 04/22/18 07:00 Intake & Output 04/21/18 04/22/18 04/22/18 18:59 06:59 18:59 Intake Total 370 Balance 370 Intake: IV 10 Invasive Line 1 10 Oral 360 Other: Voiding Method Urinal Urinal # Voids 1 3 # Bowel Movements 1 - Exam Constitutional: No acute distress, conversant, pleasant Eyes: Anicteric sclerae, moist conjunctiva, no lid-lag, PERRLA ENMT: NC/AT,Oropharynx clear, no erythema, exudates Neck:Supple, FROM, no masses, or JVD, No carotid bruits; No thyromegaly Lungs: Clear to auscultation, Clear to percussion, Normal respiratory effort, no accessory muscle use Cardiovascular: Heart regular in rate and rhythm, No murmurs, gallops, or rubs no peripheral edema Abdominal: Soft tender to palpation, marginally improved still distended and tight, no guarding, no rebound or rigidity, shifting dullness Skin: Normal temperature, tone, texture, turgor, No induration No subcutaneous nodules, No rash, lesions, No ulcers Extremities:No digital cyanosis No clubbing, Pedal pulses intact and symmetrical Radial pulses intact and symmetrical Normal gait and station, No calf tenderness Psychiatric: Alert and oriented to person, place and time, Appropriate affect Intact judgement Neuro: Muscles Strength 5/5 in all 4 extremities, Sensation to light touch grossly present throughout, Cranial nerves II-XII grossly intact. No focal sensory deficits - Labs CBC & Chem 7: 04/22/18 07:34 04/22/18 07:34 Labs: Abnormal Lab Results - Last 24 Hours (Table) 04/21/18 04/22/18 04/22/18 Range/Units 06:43 07:34 07:34 RBC 3.69 L 3.69 L (4.30-5.90) m/uL MCV 115.2 H 112.9 H (80.0-100.0) fL MCH 37.3 H 37.8 H (25.0-35.0) pg Plt Count 82 L 87 L (150-450) k/uL Sodium 134 L (137-145) mmol/L Chloride 97 L (98-107) mmol/L Carbon Dioxide 31 H (22-30) mmol/L Total Bilirubin 6.9 H (0.2-1.3) mg/dL AST 131 H (17-59) U/L Alkaline Phosphatase 244 H (38-126) U/L Albumin 3.0 L (3.5-5.0) g/dL Assessment and Plan (1) Alcoholic cirrhosis of liver with ascites Narrative/Plan: * Previous abdominal CT done on 04/18 compatible with liver cirrhosis with associated ascites and portal venous hypertension * Initiated on Lasix and spironolactone * Appreciate GI recommendations patient initiated on ceftriaxone for SBP prophylaxis * Ultrasound-guided abdominal paracentesis ordered plans for fluid analysis studies Current Visit: Yes Status: Acute Code(s): K70.31 - ALCOHOLIC CIRRHOSIS OF LIVER WITH ASCITES SNOMED Code(s): 662014488 (2) Ascites due to alcoholic cirrhosis Narrative/Plan: * Patient will likely need IR consult for ultrasound-guided paracentesis * GI consulted for further recommendations * Continue diuresis with Lasix 20 mg IV twice a day * Place patient on fluid restriction and DC IV fluids Current Visit: Yes Status: Acute Code(s): K70.31 - ALCOHOLIC CIRRHOSIS OF LIVER WITH ASCITES SNOMED Code(s): 8340060913750830 (3) Thrombocytopenia Narrative/Plan: * Likely secondary to alcoholic cirrhosis * No evidence of acute bleed hemoglobin stable and trending up from 82-87 * Continue to monitor Current Visit: Yes Status: Acute Code(s): D69.6 - THROMBOCYTOPENIA, UNSPECIFIED SNOMED Code(s): 204360314 (4) Abdominal pain Narrative/Plan: * Initiated patient on oxycodone when necessary for pain Current Visit: Yes Status: Acute Code(s): R10.9 - UNSPECIFIED ABDOMINAL PAIN SNOMED Code(s): 49356074 (5) Alcohol dependence Narrative/Plan: * Continue symptom triggered CIWA protocol * No signs of severe withdrawals as yet currently is still in the window for potentially severe withdrawals * Continue to monitor Current Visit: Yes Status: Acute Code(s): F10.20 - ALCOHOL DEPENDENCE, UNCOMPLICATED SNOMED Code(s): 55659432 Plan: disposition * Anticipated discharge in 2 days
--- NOTE | 2018-04-22 20:01 | P.PN ---
Subjective Progress Note Date: 04/22/18 Principal diagnosis: Alcoholic cirrhosis with ascites Patient reports he is feeling well. He feels his abdomen is still distended. He is urinating well on diuretic therapy. Objective - Vital Signs Vital signs: Vital Signs Temp 98.2 F 04/22/18 14:15 Pulse 64 04/22/18 14:15 Resp 16 04/22/18 14:15 BP 136/72 04/22/18 14:15 Pulse Ox 97 04/22/18 14:15 Intake & Output 04/22/18 04/22/18 04/23/18 06:59 18:59 06:59 Intake Total 200 Balance 200 Intake: Oral 200 Other: Voiding Method Urinal # Voids 3 1 # Bowel Movements 1 - Exam On physical examination, patient appears comfortable in no apparent distress. HEAD: Normocephalic, atraumatic. EYES: Mild scleral icterus. No conjunctival injection. MOUTH: No lesions, tongue midline. NECK: Trachea midline, no gross abnormalities. CHEST: Clear to auscultation with no wheezing or rhonchi appreciated. HEART: Regular rate and rhythm. ABDOMEN: Soft, distended with positive fluid wave. Bowel sounds are positive. No organomegaly. No guarding or rigidity. EXTREMITIES: No pedal edema. SKIN: No rashes, mild jaundice. NEUROLOGIC: Alert and oriented x3. No asterixis noted. No focal deficits. - Labs CBC & Chem 7: 04/22/18 07:34 04/22/18 07:34 Labs: Abnormal Lab Results - Last 24 Hours (Table) 04/22/18 04/22/18 Range/Units 07:34 07:34 RBC 3.69 L (4.30-5.90) m/uL MCV 112.9 H (80.0-100.0) fL MCH 37.8 H (25.0-35.0) pg Plt Count 87 L (150-450) k/uL Sodium 134 L (137-145) mmol/L Chloride 97 L (98-107) mmol/L Carbon Dioxide 31 H (22-30) mmol/L Total Bilirubin 6.9 H (0.2-1.3) mg/dL AST 131 H (17-59) U/L Alkaline Phosphatase 244 H (38-126) U/L Albumin 3.0 L (3.5-5.0) g/dL Assessment and Plan (1) Alcoholic cirrhosis of liver with ascites Narrative/Plan: Patient presenting with reports of worsening abdominal pain and distention, with outpatient computed tomography scan with findings consistent with cirrhosis , portal hypertension and new onset ascites. The patient denies any prior history of cirrhosis or decompensated liver disease with no prior paracentesis, esophageal bleeds from varices, or encephalopathy. The patient reports a history of alcohol abuse with daily consumption of alcohol for over 40 years. Current Visit: Yes Status: Acute Code(s): K70.31 - ALCOHOLIC CIRRHOSIS OF LIVER WITH ASCITES SNOMED Code(s): 678123701 (2) Abdominal pain Current Visit: Yes Status: Acute Code(s): R10.9 - UNSPECIFIED ABDOMINAL PAIN SNOMED Code(s): 25844707 (3) Alcohol dependence Current Visit: Yes Status: Acute Code(s): F10.20 - ALCOHOL DEPENDENCE, UNCOMPLICATED SNOMED Code(s): 98555432 (4) Elevated liver enzymes Narrative/Plan: Elevation in patient's liver enzymes are consistent with his known history of alcoholic cirrhosis Current Visit: Yes Status: Acute Code(s): R74.8 - ABNORMAL LEVELS OF OTHER SERUM ENZYMES SNOMED Code(s): 633327342 Plan: Supportive care Okay for sodium restricted diet Agree with the addition of Lasix 20 mg twice a day and Aldactone 25 mg daily to the patient's medical regimen, can titrate for adequate diuresis Ultrasound-guided paracentesis at this time with fluid studies including protein , albumin, cell count and differential and culture Antibiotic therapy for SBP prophylaxis Alcohol abstinence Watch for signs or symptoms of alcohol withdrawal Thank you for allowing us to participate in the care of the patient we will continue to follow
[2018-04-22] MEDS: traMADol 50 MG TAB PO PRN (22:27)
[2018-04-23] MEDS: LEVOTHYROXINE 50 MCG TAB PO SCH (06:09)
[2018-04-23] MEDS: PANTOPRAZOLE 40 MG TABLET PO SCH (08:56)
[2018-04-23] MEDS: MULTIVITAMINS, THERA 1 EACH TAB PO SCH (08:56)
[2018-04-23] MEDS: THIAMINE 100 MG TAB PO SCH ×2 (08:56→16:44)
[2018-04-23] MEDS: SPIRONOLACTONE 25 MG TAB PO SCH (08:56)
[2018-04-23] MEDS: METOPROLOL TARTRATE 50 MG TAB PO SCH (08:56)
[2018-04-23] MEDS: FLUTICASONE 50MCG/SPRAY NASAL 16GM EA NOSTRIL SCH (08:57)
[2018-04-23] MEDS: FUROSEMIDE 10 MG/ML 2 ML VIAL IV SCH (08:57)
[2018-04-23] MEDS: traMADol 50 MG TAB PO PRN (09:00)
[2018-04-23] MEDS: chlordiazePOXIDE 25 MG CAP PO SCH ×2 (09:01→16:44)
[2018-04-23 09:44] LABS: Basophils % (A) 1 %; Eosinophils # (A) 0.1 k/uL (0-0.7); Eosinophils % (A) 2 %; HCT 39.5 % (39.0-53.0); HGB 13.4 gm/dL (13.0-17.5); Lymphocytes # (A) 0.8 k/uL (1.0-4.8); Lymphocytes % (A) 15 %; MCH 37.6 pg (25.0-35.0); MCHC 33.9 g/dL (31.0-37.0); Macrocytosis Marked; Mean Platelet Volume 8.8; Monocytes # (A) 0.3 k/uL (0-1.0); Monocytes % (A) 6 %; Neutrophils # (A) 3.7 k/uL (1.3-7.7); Neutrophils % (A) 74 %; RBC 3.56 m/uL (4.30-5.90); RDW 13.4 % (11.5-15.5)
[2018-04-23 09:51] LABS: Platelet Count 83 k/uL (150-450)
[2018-04-23 09:57] LABS: ALT 53 U/L (21-72); AST 110 U/L (17-59); Albumin 2.9 g/dL (3.5-5.0); Alkaline Phosphatase 206 U/L (38-126); Anion Gap 4 mmol/L; Blood Urea Nitrogen 14 mg/dL (9-20); Calcium 8.9 mg/dL (8.4-10.2); Carbon Dioxide 30 mmol/L (22-30); Chloride 100 mmol/L (98-107); Glucose 134 mg/dL (74-99); Potassium 3.7 mmol/L (3.5-5.1); Sodium 134 mmol/L (137-145); Total Bilirubin 5.8 mg/dL (0.2-1.3); Total Protein 6.3 g/dL (6.3-8.2)
[2018-04-23 10:12] LABS: INR 1.4 (<1.2); Prothrombin Time 13.9 sec (9.0-12.0)
--- NOTE | 2018-04-23 10:31 | US ---
EXAMINATION TYPE: US abdomen limited DATE OF EXAM: 04/23/2018 COMPARISON: NONE CLINICAL HISTORY: ascites. Moderate fluid seen on right. Fluid is very lateral, almost in patients side to scan last picture. IMPRESSION: 1. Ascites
[2018-04-23 15:33] VITALS: RESP 16
[2018-04-23 16:32] VITALS: BP 147/80; PULSE 65; TEMP 97.7
[2018-04-23 18:28] LABS: Appearance,BF Hazy; Color,BF Yellow
[2018-04-23 18:40] LABS: Nucleated Cells, Body Fluid 160 /uL; RBC, Body Fluid 60 /uL
[2018-04-23 18:42] LABS: Mononuclear WBC,Body Fluid 95 %; Polynuclear WBC,Body Fluid 5 %; Total Cells Counted,Body Fluid 100
[2018-04-24 04:51] LABS: Total Protein, Body Fluid 1132 mg/dL
--- NOTE | 2018-04-24 09:57 | US ---
Therapeutic paracentesis. DATE OF EXAM: 04/23/2018 CLINICAL HISTORY: Ascites The procedure was discussed with the patient. The risks, complications, benefits, and alternatives we re discussed and any questions were answered. Informed consent was obtained. The patient was placed s upine on the ultrasound table and prepped and draped in the usual sterile fashion. All elements of maximal barrier technique were utilized. Under ultrasound guidance, access into the right lower quadrant was obtained, via the paracentesis catheter system and direct ultrasound guidanc e. Approximately 2.3 liters of straw-colored fluid was removed. The patient was stable throughout the pr ocedure and remained stable upon discharge from Department of Radiology. IMPRESSION: Successful therapeutic paracentesis under ultrasound guidance.
--- NOTE | 2018-04-24 11:53 | P.DS ---
Providers Date of admission: 04/21/18 11:04 Expected date of discharge: 04/24/18 Attending physician: Wang Ugarte MD Consults: 04/20/18 11:12 Consult Physician Routine Consulting Provider: Alan Martinez Consult Reason/Comments: paracentesis Do you want consulting provider notified?: Yes Primary care physician: Tricia Blackwell - Discharge Diagnosis(es) (1) Alcoholic cirrhosis of liver with ascites Status: Acute (2) Ascites due to alcoholic cirrhosis Status: Acute (3) Thrombocytopenia Status: Acute (4) Abdominal pain Status: Acute (5) Alcohol dependence Status: Acute (6) Coagulopathy Status: Acute Hospital Course: The patient is a 58-year-old male with a long-standing history of chronic alcohol dependence relatively recently diagnosed alcoholic liver cirrhosis that presented to the ER with chief complaint of abdominal pain with distention and nausea. Review of his prior CT of abdominal and pelvis indicated findings consistent with cirrhosis, portal hypertension and new onset ascites. The patient was subsequently admitted with plans to have abdominal paracentesis performed with GI in consultation. The patient is also noted to have a coagulopathy and thrombocytopenia related to his alcoholic cirrhosis, but had no signs of bleeding with stabilizing labs. The patient was started on diuretics with Lasix and Aldactone and started on Rocephin for SBP prophylaxis, the patient was seen by Dr. Gonzalez an ultrasound-guided paracentesis by IR was ordered an approximately 2.3 L of straw-colored fluid was removed and sent for analysis. Patient tolerated the procedure without any significant complications and was subsequently discharged home in stable condition and instructed to follow-up with GI Dr. Britt in 2 weeks. Prescriptions for spironolactone and Lasix were E prescribed to his pharmacy Focused abdomen: Soft nontender, slightly distended, no shifting dullness, nonacute abdomen Patient Condition at Discharge: Fair Plan - Discharge Summary Discharge Rx Participant: No New Discharge Prescriptions: New Furosemide [Lasix] 40 mg PO DAILY #30 tablet Spironolactone [Aldactone] 25 mg PO DAILY #30 tab Continue amLODIPine BESYLATE [Norvasc] 5 mg PO DAILY Omeprazole [PriLOSEC] 20 mg PO DAILY Metoprolol Tartrate [Lopressor] 100 mg PO DAILY rOPINIRole HCL [Requip] 0.25 mg PO BID Levothyroxine Sodium [Synthroid] 50 mcg PO DAILY Fluticasone Nasal [place] [Flonase Nasal [place]] 2 spr EA NOSTRIL DAILY HYDROcodone/APAP 10-325MG [[place] 10-325] 1 tab PO DAILY PRN PRN Reason: Pain Discontinued Meloxicam 15 mg PO DAILY Discharge Medication List Metoprolol Tartrate [Lopressor] 100 mg PO DAILY 07/29/13 [History] Omeprazole [PriLOSEC] 20 mg PO DAILY 07/29/13 [History] amLODIPine BESYLATE [Norvasc] 5 mg PO DAILY 07/29/13 [History] Fluticasone Nasal [place] [Flonase Nasal [place]] 2 spr EA NOSTRIL DAILY 04/20/18 [ History] HYDROcodone/APAP 10-325MG [[place] 10-325] 1 tab PO DAILY PRN 04/20/18 [History] Levothyroxine Sodium [Synthroid] 50 mcg PO DAILY 04/20/18 [History] rOPINIRole HCL [Requip] 0.25 mg PO BID 04/20/18 [History] Furosemide [Lasix] 40 mg PO DAILY #30 tablet 04/23/18 [Rx] Spironolactone [Aldactone] 25 mg PO DAILY #30 tab 04/23/18 [Rx] Follow up Appointment(s)/Referral(s): Tricia Blackwell MD [Primary Care Provider] - 1-2 days Joss Gonzalez MD [STAFF PHYSICIAN] - 2 Weeks Patient Instructions/Handouts: Ascites (DC), Paracentesis (DC) Discharge Disposition: HOME SELF-CARE
== END 2018-04-23 17:22 | disposition home or self-care (01) | DRG 433 ==
LOC: EC 10:04 → 3SCARD 13:03 → OBSVTOIN 04-21 11:04 → 4MS4W 04-21 12:17
PROVIDERS: ADMIT Internal Medicine; ATTEND Internal Medicine
PROC: 0W9G3ZZ Drainage of Peritoneal Cavity, Percutaneous Approach (ICD-10-PCS; principal; 2018-04-23)
DX: K70.31 Alcoholic cirrhosis of liver with ascites (principal); K76.6 Portal hypertension; I10 Essential (primary) hypertension; M10.9 Gout, unspecified; D69.6 Thrombocytopenia, unspecified; F10.20 Alcohol dependence, uncomplicated; R79.1 Abnormal coagulation profile; D52.0 Dietary folate deficiency anemia; D69.59 Other secondary thrombocytopenia; E63.9 Nutritional deficiency, unspecified; F17.200 Nicotine dependence, unspecified, uncomplicated; K21.9 Gastro-esophageal reflux disease without esophagitis; Z86.73 Personal history of transient ischemic attack (TIA), and cerebral infarction without residual deficits; Z79.890 Hormone replacement therapy; Z79.899 Other long term (current) drug therapy; Z85.820 Personal history of malignant melanoma of skin
CPT/HCPCS: 36415; 49083; 76705; 80053; 80320; 82042; 82248; 83690; 83735; 84157; 85025; 85610; 87070; 87075; 87205; 89050; 93005; 96372; 96374; 99285

== ENCOUNTER → 2018-06-27 | Outpatient (CLI) | payer OTHER ==
[2018-06-27 14:48] LABS: HCT 39.1 % (39.0-53.0); HGB 13.5 gm/dL (13.0-17.5); MCH 35.4 pg (25.0-35.0); MCHC 34.6 g/dL (31.0-37.0); Macrocytosis Slight; Mean Platelet Volume 8.6; RBC 3.81 m/uL (4.30-5.90); RDW 13.8 % (11.5-15.5)
[2018-06-27 14:56] LABS: MCV 102.5 fL (80.0-100.0)
[2018-06-27 14:57] LABS: Platelet Count 129 k/uL (150-450)
[2018-06-27 19:16] LABS: Albumin 3.7 g/dL (3.80-4.90); Albumin/Globulin Ratio 1.32 (1.60-3.17); Calcium 9.6 mg/dL (8.7-10.3); Globulin 2.8 g/dL (1.6-3.3); Potassium 5.2 mmol/L (3.5-5.5); Total Bilirubin 2.5 mg/dL (0.2-1.2); Total Protein 6.5 g/dL (6.2-8.2)
[2018-06-28 14:25] LABS: T4, Free (Free Thyroxine) 1.2 ng/dL (0.80-1.80)
[2018-06-28 14:34] LABS: Folate, Serum >24.0 ng/mL
[2018-06-28 20:38] LABS: Hemoglobin A1C 4.8 % (4.0-6.0)
== END | disposition home or self-care (01) ==
LOC: LABWHC1 13:26
DX: K70.31 Alcoholic cirrhosis of liver with ascites (principal)
CPT/HCPCS: 36415; 80053; 82105; 82607; 82746; 83036; 84439; 84443; 85027

== ENCOUNTER → 2018-09-03 | Outpatient (CLI) | payer OTHER ==
[2018-09-03 15:05] LABS: HCT 36.8 % (39.0-53.0); HGB 13.1 gm/dL (13.0-17.5); MCH 36.4 pg (25.0-35.0); MCHC 35.5 g/dL (31.0-37.0); MCV 102.4 fL (80.0-100.0); Macrocytosis Slight; Mean Platelet Volume 7.8; Platelet Count 125 k/uL (150-450); RBC 3.59 m/uL (4.30-5.90); RDW 13.5 % (11.5-15.5); WBC 6.6 k/uL (3.8-10.6)
[2018-09-03 15:13] LABS: Partial Thromboplastin Time 28.5 sec (22.0-30.0); Prothrombin Time 10.6 sec (9.0-12.0)
== END | disposition home or self-care (01) ==
LOC: LABWHC1 14:13
PROVIDERS: ATTEND Physical Medicine & Rehabilitation
DX: M54.16 Radiculopathy, lumbar region (principal); M47.817 Spondylosis without myelopathy or radiculopathy, lumbosacral region
CPT/HCPCS: 36415; 85027; 85610; 85730

== ENCOUNTER → 2018-11-15 | Outpatient (CLI) | payer OTHER ==
--- NOTE | 2018-11-16 08:41 | CT ---
EXAMINATION TYPE: CT abdomen wo/w con DATE OF EXAM: 11/15/2018 COMPARISON: 04/18/2018 HISTORY: Alcoholic, cirrhosis of liver. Per Dr. Cr, 40sec/80sec/4 min delay, 4 ml/[address] DLP: 1453.30 mGycm CONTRAST: CT scan of the abdomen and pelvis is performed with Oral Contrast and with IV Contrast, patient injec jonh with 100 mL of Isovue 300. FINDINGS: LUNG BASES-: No visible nodule. No infiltrate. LIVER/GB: Layering gallstones are noted. Nodular hepatic appearance consistent with cirrhosis. No s pace occupying hepatic lesion. Biliary tree is of normal caliber. PANCREAS: No inflammation. No distinct mass. SPLEEN: Splenomegaly measuring 13.6 cm craniocaudal dimension. No lesion seen. ADRENALS: No nodule. No thickening. KIDNEYS/BLADDER: No hydronephrosis. 6 mm nonobstructing calculus right kidney. 2 mm nonobstructing c alculus lower pole left kidney. No distinct renal mass. Urinary bladder grossly unremarkable. BOWEL: Normal appendix. Normal bowel caliber. No inflammation. GENITAL ORGANS: No gross abnormality. LYMPH NODES: No greater than 1cm abdominal or pelvic lymph nodes are appreciated. AORTA: No significant abnormality. OSSEOUS STRUCTURES: No significant abnormality is seen. OTHER: No significant additional abnormality is seen. IMPRESSION: 1. Cirrhotic liver disease. No space-occupying lesion. 2. Splenomegaly. 3. Layering gallstones.
== END | disposition home or self-care (01) ==
LOC: RADCTMAIN 15:06
PROVIDERS: ATTEND Internal Medicine Gastroenterology
DX: K74.60 Unspecified cirrhosis of liver (principal); R16.1 Splenomegaly, not elsewhere classified; K80.20 Calculus of gallbladder without cholecystitis without obstruction
CPT/HCPCS: 74170; Q9967 ×2

== ENCOUNTER → 2018-11-16 | Outpatient (CLI) | payer OTHER ==
[2018-11-16 12:43] LABS: HCT 41.7 % (39.0-53.0); MCH 33.4 pg (25.0-35.0); MCHC 33.5 g/dL (31.0-37.0); MCV 99.8 fL (80.0-100.0); Mean Platelet Volume 7.5; Platelet Count 132 k/uL (150-450); RBC 4.18 m/uL (4.30-5.90); RDW 13.5 % (11.5-15.5); WBC 5.9 k/uL (3.8-10.6)
[2018-11-16 18:41] LABS: African American GFR (CKD) 76.3 (60.0-200.0); Albumin 4.1 g/dL (3.80-4.90); Albumin/Globulin Ratio 1.41 (1.60-3.17); Anion Gap 5.5 mmol/L (4.00-12.00); BUN/Creat Ratio 19.17 Ratio (12.00-20.00); Carbon Dioxide 26.5 mmol/L (21.6-31.8); Globulin 2.9 g/dL (1.6-3.3); Total Bilirubin 1.4 mg/dL (0.2-1.2)
[2018-11-16 18:48] LABS: Alpha Fetoprotein, Tumor Mkr 7.5 ng/mL (0.0-7.9)
== END | disposition home or self-care (01) ==
LOC: LABWHC1 12:02
PROVIDERS: ATTEND Internal Medicine Gastroenterology
DX: K70.30 Alcoholic cirrhosis of liver without ascites (principal)
CPT/HCPCS: 36415; 80053; 80074; 82105; 82140; 85027

== ENCOUNTER 2019-01-02 09:44 | Day surgery (SDC) | payer OTHER ==
[2018-12-31 14:49] VITALS: BMI 26.6
[~2019-01-02 09:44] MED LIST: LACTATED RINGERS 1,000 ML IV SCH; LIDOCAINE 1% 20 ML VIAL (10MG/ML) FOR IV START INTRADERMA PRN
[2019-01-02 10:30] VITALS: RESP 18; TEMP 97.8
[2019-01-02] MEDS ORDERED: LIDOCAINE 1% 20 ML VIAL (10MG/ML) FOR IV START INTRADERMA ONE (10:30)
[2019-01-02] MEDS ORDERED: LACTATED RINGERS 1,000 ML IV ONE (10:30)
[2019-01-02] MEDS ORDERED: PROPOFOL 10 MG/ML 20 ML VIAL IV ONE (10:52)
--- NOTE | 2019-01-02 11:03 | P.PCN ---
Date of Procedure: 01/02/19 Procedure(s) Performed: BRIEF HISTORY: Patient is a 58-year-old, pleasant, male, scheduled for an upper endoscopy as a part of screening for esophageal varices. He was diagnosed with alcohol cirrhosis of the liver recently.. PROCEDURE PERFORMED: Esophagogastroduodenoscopy. PREOPERATIVE DIAGNOSIS: cirrhosis of the liver/screening for esophageal varices. IV sedation per anesthesia. PROCEDURE: After informed consent was obtained, the patient was brought into the endoscopy unit. IV sedation was administered by Anesthesia under continuous monitoring. Initially the Olympus GIF-140 video endoscope was inserted into the mouth. Esophagus intubated without any difficulty. It was gradually advanced i nto the stomach and duodenum and carefully examined. The bulb and the second part of the duodenum appeared normal. The scope at this time was withdrawn to the stomach, adequately insufflated with air, and upon careful examination, mucosa of the antrum had gastritis and biopsies were done from this area. Mucosa in the, body, cardia and the fundus had congested appearance consistent portal hypertensive gastropathy.. The scope was then withdrawn into the esophagus. The GE junction was located at 43 cm from the incisors. The esophagus appeared normal. There were large mid and distal esophageal varices seen and the patient tolerated the procedure well. IMPRESSION: 1. Large esophageal varices in the mid and distal esophagus. 2. Mild to moderate portal hypertensive gastropathy. RECOMMENDATIONS: The findings of this examination were discussed with the patient as well as his family. He'll be started on Inderal 10 mg 3 times daily and titrate to 60 grams daily. He'll be seen in office in 2 months..
[2019-01-02 11:46] VITALS: BP 107/54; PULSE 57
== END 2019-01-02 12:02 | disposition home or self-care (01) ==
LOC: ORWHC2ENDO 09:44
PROVIDERS: ATTEND Internal Medicine Gastroenterology
DX: K70.30 Alcoholic cirrhosis of liver without ascites (principal); I85.10 Secondary esophageal varices without bleeding; K29.50 Unspecified chronic gastritis without bleeding; K76.6 Portal hypertension; K31.89 Other diseases of stomach and duodenum; I10 Essential (primary) hypertension; F17.210 Nicotine dependence, cigarettes, uncomplicated; Z85.820 Personal history of malignant melanoma of skin; M10.9 Gout, unspecified; Z86.73 Personal history of transient ischemic attack (TIA), and cerebral infarction without residual deficits; Z79.82 Long term (current) use of aspirin; Z79.899 Other long term (current) drug therapy; Z79.890 Hormone replacement therapy
CPT/HCPCS: 88305; 43239; J2704

== ENCOUNTER → 2019-01-31 | Outpatient (CLI) | payer OTHER ==
[2019-01-31 11:41] LABS: HCT 39.9 % (39.0-53.0); HGB 14.2 gm/dL (13.0-17.5); MCH 34.8 pg (25.0-35.0); MCHC 35.7 g/dL (31.0-37.0); MCV 97.7 fL (80.0-100.0); Mean Platelet Volume 6.6; Platelet Count 151 k/uL (150-450); RBC 4.08 m/uL (4.30-5.90); RDW 13.5 % (11.5-15.5); WBC 7.5 k/uL (3.8-10.6)
[2019-01-31 11:47] LABS: Appearance,Urine Clear (Clear); Bilirubin,Urine Negative (Negative); Blood,Urine Negative (Negative); Color,Urine Light Yellow; Glucose,Urine (UA) Negative (Negative); Ketones,Urine Negative (Negative); Leukocyte Esterase,Urine Negative (Negative); Nitrite,Urine Negative (Negative); PH, Urine 5.5 (5.0-8.0); Partial Thromboplastin Time 28.7 sec (22.0-30.0); Protein,Urine Negative (Negative); Prothrombin Time 10.6 sec (9.0-12.0); Specific Gravity,Urine 1.004 (1.001-1.035); Urobilinogen,Urine <2.0 mg/dL (<2.0)
[2019-01-31 12:03] LABS: ALT 30 U/L (21-72); AST 40 U/L (17-59); African American GFR (CKD) >90 (>60 ml/min/1.73 sqM); Albumin 4.4 g/dL (3.5-5.0); Alkaline Phosphatase 138 U/L (38-126); Anion Gap 11 mmol/L; Blood Urea Nitrogen 19 mg/dL (9-20); Calcium 10.2 mg/dL (8.4-10.2); Carbon Dioxide 24 mmol/L (22-30); Chloride 105 mmol/L (98-107); Glucose 120 mg/dL (74-99); Non-African American GFR(CKD) 80 (>60 ml/min/1.73 sqM); Potassium 4.3 mmol/L (3.5-5.1); Sodium 140 mmol/L (137-145); Total Protein 8.1 g/dL (6.3-8.2)
== END | disposition home or self-care (01) ==
LOC: LABPAT 11:01
PROVIDERS: ATTEND Orthopaedic Surgery
DX: Z01.812 Encounter for preprocedural laboratory examination (principal); M16.11 Unilateral primary osteoarthritis, right hip
CPT/HCPCS: 80053; 81003; 85027; 85610; 85730; 87070

== ENCOUNTER 2019-02-05 10:03 | Inpatient (IN) | payer OTHER ==
[2019-01-31 11:44] VITALS: BMI 26.6
[~2019-02-05 10:03] MED LIST changes: +ACETAMINOPHEN TAB 500 MG TAB PO ONE; +DEXAMETHASONE SOD PHOSPHATE 10 MG/ML 1 ML VIAL IV ONE; +GABAPENTIN 300 MG CAP PO ONE; +HYDROmorphone 0.5 MG/0.5 ML SYRINGE IVP PRN; -LACTATED RINGERS 1,000 ML IV SCH; +MELOXICAM 7.5 MG TAB PO ONE; +ROPIVACAINE 246.25 MG, EPINEPHrine 0.5 MG, KETOROLAC 30 MG, cloNIDine HCL/PF 80 MCG, WA... MISCELLANE ONE; +TRANEXAMIC ACID 1,000 MG in SODIUM CHLORIDE 0.9% 100 ML IVPB ONE
[2019-02-05] MEDS: LACTATED RINGERS 1,000 ML IV SCH (10:48)
[2019-02-05] MEDS ORDERED: ONDANSETRON 4 MG/2 ML VIAL IVP ONE (10:51)
[2019-02-05] MEDS ORDERED: SODIUM CHLORIDE 0.9% 100 ML BAG ONE (12:02)
[2019-02-05] MEDS ORDERED: KETAMINE 10 MG/ML 20 ML VIAL ONE (12:02)
[2019-02-05] MEDS ORDERED: ePHEDrine SULFATE/0.9% NACL/PF 50 MG/5 ML SYRINGE IV ONE (12:02)
[2019-02-05] MEDS ORDERED: fentaNYL (PF) 50 MCG/ML 2 ML AMP ONE (12:02)
[2019-02-05] MEDS ORDERED: PROPOFOL 10 MG/ML 20 ML VIAL IV ONE (12:02)
[2019-02-05] MEDS ORDERED: diphenhydrAMINE 50 MG/ML 1 ML VIAL ONE (12:02)
[2019-02-05] MEDS ORDERED: MIDAZOLAM 2 MG/2 ML VIAL ONE (12:02)
[2019-02-05] MEDS ORDERED: TRANEXAMIC ACID 1,000 MG/10 ML VIAL ONE (12:02)
[2019-02-05] MEDS ORDERED: ONDANSETRON 4 MG/2 ML VIAL IVP PRN (12:05)
[2019-02-05] MEDS ORDERED: HYDROcodone/APAP 5-325MG 1 EACH TAB PO PRN (12:05)
[2019-02-05] MEDS ORDERED: MAGNESIUM HYDROXIDE 2,400 MG/10 ML CUP PO PRN (12:05)
[2019-02-05] MEDS ORDERED: HYDROmorphone 1 MG/ML 1 ML SYRINGE IVP PRN (12:05)
[2019-02-05] MEDS ORDERED: HYDROmorphone 0.5 MG/0.5 ML SYRINGE IVP PRN ×2 (12:05)
[2019-02-05] MEDS ORDERED: DIAZEPAM 5 MG TAB PO PRN (12:05)
[2019-02-05] MEDS ORDERED: NALOXONE 0.4 MG/ML 1 ML VIAL IV PRN (12:05)
[2019-02-05] MEDS ORDERED: hydrOXYzine PAMOATE 25 MG CAP PO PRN (12:05)
[2019-02-05] MEDS ORDERED: ceFAZolin 3,000 MG in SODIUM CHLORIDE 0.9% IRRIGATIO 3,000 ML IRRIGATION ONE (12:05)
[2019-02-05] MEDS ORDERED: LACTATED RINGERS 1,000 ML IV ONE (13:29)
--- NOTE | 2019-02-05 13:38 | P.OP ---
Date of Procedure: 02/05/19 Preoperative Diagnosis: Severe osteoarthritis right hip Postoperative Diagnosis: Severe osteoarthritis right hip Procedure(s) Performed: Right total hip arthroplasty with a direct anterior approach Implants: Pedroza and nephew Polarstem size 3 standard Pedroza [employer] Nephew R3, 3 hole acetabular shell, 52 mm [employer]za [employer]hew reflection 6.5 mm cancellus screw, 20 mm 2 [employer]za [employer]hew R3, XLPE 20 acetabular liner Pedroza [employer] Nephew Oxinium femoral head 36 m, +4 All components were press-fit. The articulation is Oxinium on polyethylene. Anesthesia: spinal Surgeon: Pablito Mace Mental Health Specialist #1: Carla Davies Estimated Blood Loss (ml): 150 (70 mL returned with Cell Saver) Pathology: other (Femoral head) Condition: stable Disposition: PACU Indications for Procedure: After failure of conservative treatment we discussed the surgical and nonsurgical treatment options at length. Patient wishes to proceed with a total hip arthroplasty with a direct anterior approach. Complications specific to this procedure were discussed at length, including but not limited to infection, leg length discrepancy, dislocation, and nerve injury. Patient is aware of all these complications and informed consent was obtained Operative Findings: The operative findings are consistent with severe osteoarthritis of the right hip Description of Procedure: Patient was seen and evaluated in the preoperative area, consent was reviewed, and the surgical site was marked with a skin marker. Patient was then brought to the operating room and given prophylactic antibiotics intravenously. 1 g of Tranexamic acid was also given. A spinal anesthetic was administered by the anesthesia department. The patient was then placed on the [place] table with the bony prominences well-padded. The hip area was then prepped and draped in usual sterile fashion. A universal timeout was then performed, which confirmed the patient's name, surgical site, ALLERGIES, and procedure being performed. Next the incision site was located at 1 cm distal and 1 cm lateral to the anterior superior iliac spine. The skin and subcutaneous tissues were sharply incised. Incision was carefully dissected down to the fascia overlying the tensor fascia kevin muscle. This fascia was then incised in line with the incision. Next, using blunt finger dissection, the tensor fascia kevin muscle was dissected off its investing fascia. The muscle was then carefully retracted laterally with a cobra retractor over the lateral neck of the femur. Next, the circumflex vessels were identified and cauterized using the AquaMantis device. The anterior hip capsule was then exposed. The capsule was then opened and an inverted T fashion. Cobra retractors were then placed intracapsularly. The proximal femur was then visualized. The femoral neck was then osteotomized appropriate level above the lesser trochanter. Small amount of traction was placed with the [place] table. A small wedge of bone was then removed from the remaining femoral head. Next, using a corkscrew femoral head was easily removed from the acetabulum. On gross visual inspection, the femoral head had complete loss of articular cartilage in mu ltiple periarticular osteophytes. Attention was then turned to the acetabulum. the acetabulum was exposed and any remaining labrum was excised. Sequential reaming of the acetabulum was performed using fluoroscopic guidance. When the appropriate size was reached, a trial was then placed. The position and fit of the trial was checked with fluoroscopy. The trial was then removed. Then, using fluoroscopic guidance, the final implant was impacted at 20 of anteversion and 40 of abduction, and fully seated in the acetabulum. 2 screws were then placed in the acetabulum. Again fluoroscopy was used to check position of the screws. Next, the liner was then impacted, with a 20 elevated liner located in the anterior superior quadrant. Component locking was confirmed. Attention was then directed to the femur. With the aid of the [place] table, the femur was externally rotated to approximately 130, extended, and abducted under the opposite leg. A side hook was then placed under the proximal femur, and the side hook elevator was used to elevate the proximal femur. Retractors were then placed. A capsular release was performed, as well as a release of the conjoined tendon, which afforded excellent visualization of the proximal femur. Next, a box osteotome was used to lateralize the proximal femur. A merchandising internship was then used to locate the femoral canal. Sequential broaching was then performed with appropriate size which afforded excellent fixation in the proximal femur. A trial was then placed with appropriate head and neck, and the hip was gently reduced with the aid of the [place] table. Fluoroscopy was then used to check position of the components, as well as to ensure equal leg lengths. The hip was then gently dislocated and the trials were then removed. Final implants were then impacted and the hip was again reduced. Final fluoroscopic x-rays confirmed that the components were in anatomic position, as well as equal leg lengths. The hip was also taken through range of motion, and found to be stable. The hip was then copiously irrigated with antibiotic solution with pulsatile lavage. The hip was then irrigated with Irrisept solution. The soft tissues were then injected with a ropivacaine solution, which consisted of 246.25 mg of ropivacaine, 0.5 mg of epinephrine, 30 mg of Toradol, 80 g of clonidine, and 48.45 mL of sterile water, for a total of 100 mL of fluid injected. A second dose of 1 g of Tranexamic acid was also given. the fascia was then closed with 2-0 strata fix suture. The subcutaneous tissue was closed with 3-0 Vicryl. The subcuticular tissue was closed with 3-0 strata fix suture. The skin was then closed with Dermabond glue and a sterile silver dressing. The patient was then transferred to the recovery room in stable co ndition. The compounding assistant RYAN Onofre was required due to the complexity of surgery, and the need for skilled regional vice president surgical sales for positioning, draping, exposure, retraction, and closure of the wound.
--- NOTE | 2019-02-05 13:41 | FL ---
EXAMINATION TYPE: FL guidance operating room DATE OF EXAM: 02/05/2019 HISTORY: Flouroscopy time 41 seconds of fluoroscopy provided. IMPRESSION: 1. Fluoroscopy time.
--- NOTE | 2019-02-05 14:46 | XR ---
EXAMINATION TYPE: XR Hip Limited RT DATE OF EXAM: 02/05/2019 COMPARISON: NONE HISTORY: Postsurgical TECHNIQUE: One view submitted. FINDINGS: There is postsurgical change in near anatomic alignment. There is soft tissue edema and emphysema. IMPRESSION: 1. Postoperative change. Appears in near-anatomic alignment.
--- NOTE | 2019-02-05 16:28 | P.CONS ---
History of Present Illness - Reason for Consult Consult date: 02/05/19 - Chief Complaint Medical management - History of Present Illness 58-year-old male with history of liver cirrhosis and hypertension as well as severe right hip osteoarthritis here after having right total hip arthroplasty. He is currently doing well, not having any pain in the hip. No chest pain or shortness of breath. No nausea or vomiting. He has history of alcoholism but he quit last March. Currently not drinking any alcohol. He has liver cirrhosis but does not have ascites. Currently on Lasix and spironolactone. 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 LAST DRINK WAS IN MAR 2018 - Past Family History Mother Family Medical History: No Reported History Father History Unknown: Yes Medications and Allergies Home Medications Medication Instructions Recorded Confirmed Type Omeprazole [PriLOSEC] 20 mg PO DAILY 07/29/13 02/05/19 History amLODIPine BESYLATE [Norvasc] 5 mg PO DAILY 07/29/13 02/05/19 History HYDROcodone/APAP 10-325MG [[place] 1 tab PO DAILY PRN 04/20/18 02/05/19 History 10-325] Levothyroxine Sodium [Synthroid] 50 mcg PO DAILY 04/20/18 02/05/19 History rOPINIRole HCL [Requip] 0.5 mg PO HS 04/20/18 02/05/19 History Furosemide [Lasix] 40 mg PO DAILY #30 tablet 04/23/18 02/05/19 Rx Spironolactone [Aldactone] 25 mg PO DAILY #30 tab 04/23/18 02/05/19 Rx Aspirin 325 mg PO DAILY 12/31/18 02/05/19 History Gabapentin [Neurontin] 300 mg PO HS 01/31/19 02/05/19 History Meloxicam 15 mg PO DAILY 01/31/19 02/05/19 History Multivitamins, Thera [Multivitamin 1 tab PO DAILY 01/31/19 02/05/19 History (formulary)] Propranolol [Inderal] 10 mg PO TID 01/31/19 02/05/19 History Allergies Allergy/AdvReac Type Severity Reaction Status Date / Time No Known Allergies Allergy Verified 02/05/19 10:36 Physical Exam Vitals: Vital Signs Temp Pulse Pulse Resp BP Pulse Ox 02/05/19 15:01 55 L 18 118/61 94 L 02/05/19 14:46 69 16 117/57 92 L 02/05/19 14:30 56 L 18 108/60 93 L 02/05/19 14:16 58 L 18 119/67 98 02/05/19 14:02 61 16 118/64 98 02/05/19 13:48 97.8 F 62 16 154/68 98 02/05/19 10:31 98.7 F 65 16 135/66 97 Intake and Output 02/05/19 02/05/19 02/05/19 06:59 14:59 22:59 Intake Total 1251 Output Total 150 Balance 1101 Intake: IV 1251 Output: Estimated Blood Loss 150 Other: Weight 78.471 kg Constitutional: No acute distress, conversant, pleasant Eyes:Anicteric sclerae, moist conjunctiva, no lid-lag, PERRLA, ENMT: Oropharynx clear, no erythema, exudates Neck: Supple, FROM, no masses, or JVD, No carotid bruits, No thyromegaly Lungs: Clear to auscultation, Clear to percussion, Normal respiratory effort, no accessory muscle use Cardiovascular: Heart regular in rate and rhythm, No murmurs, gallops, or rubs, No peripheral edema Abdominal: Soft, Nontender, no guarding, rebound or rigidity, Normoactive bowel sounds, No hepatomegaly, No splenomegaly, No palpable mass Skin: Normal temperature, tone, texture, turgor, no induration, No subcutaneous nodules, No rash, lesions, No ulcers Extremities: No digital cyanosis, No clubbing, Pedal pulses intact and symmetrical, Radial pulses intact and symmetrical, No calf tenderness Psychiatric: Alert and oriented to person, place and time, appropriate affect, intact judgement Neuro: Muscles Strength 5/5 in all 4 extremities, Sensation to light touch grossly present throughout, Cranial nerves II-XII grossly intact, no focal sensory deficits Assessment and Plan Plan: Status post total right hip arthroplasty Management per surgery Pain control with meloxicam and opiates PT Essential hypertension Continue Norvasc History of liver cirrhosis Stable Continue Lasix, Aldactone, propranolol History of peripheral neuropathy, restless leg syndrome Stable Resume meds DVT prophylaxis On full dose aspirin twice a day Anticipated discharge: 1-2 days Disposition: Home
[2019-02-05] MEDS: SODIUM CHLORIDE 0.9% 1,000 ML IV SCH (16:37)
[2019-02-05] MEDS: HYDROcodone/APAP 5-325MG 1 EACH TAB PO PRN (19:10)
[2019-02-05] MEDS: ASPIRIN 325 MG TAB PO SCH (20:49)
[2019-02-05] MEDS: PROPRANOLOL 10 MG TAB PO SCH (20:49)
[2019-02-05] MEDS ORDERED: SENNOSIDES-DOCUSATE SODIUM 1 EACH TAB PO SCH (21:00)
[2019-02-05] MEDS ORDERED: GABAPENTIN 300 MG CAP PO SCH (21:00)
[2019-02-06] MEDS: HYDROcodone/APAP 5-325MG 1 EACH TAB PO PRN ×2 (02:28→08:10)
[2019-02-06] MEDS: SODIUM CHLORIDE 0.9% 1,000 ML IV SCH (05:02)
[2019-02-06] MEDS ORDERED: LEVOTHYROXINE 50 MCG TAB PO SCH (06:30)
[2019-02-06 07:21] VITALS: BP 116/60; PULSE 82; RESP 17; TEMP 98.2
[2019-02-06 07:24] LABS: Basophils % (A) 0 %; Eosinophils % (A) 0 %; HCT 30.6 % (39.0-53.0); Lymphocytes # (A) 0.9 k/uL (1.0-4.8); Lymphocytes % (A) 6 %; MCH 34.8 pg (25.0-35.0); MCHC 35.4 g/dL (31.0-37.0); MCV 98.3 fL (80.0-100.0); Mean Platelet Volume 9.2; Monocytes # (A) 0.7 k/uL (0-1.0); Monocytes % (A) 5 %; Neutrophils # (A) 12.3 k/uL (1.3-7.7); Neutrophils % (A) 88 %; RBC 3.11 m/uL (4.30-5.90); RDW 13.4 % (11.5-15.5)
[2019-02-06 07:26] LABS: HGB 10.8 gm/dL (13.0-17.5)
[2019-02-06 07:56] LABS: Platelet Count 95 k/uL (150-450)
[2019-02-06] MEDS: PROPRANOLOL 10 MG TAB PO SCH (08:09)
[2019-02-06] MEDS: ASPIRIN 325 MG TAB PO SCH (08:10)
--- NOTE | 2019-02-06 08:47 | P.DS ---
Providers Date of admission: 02/05/19 10:03 Expected date of discharge: 02/06/19 Attending physician: Pablito Mace Consults: 02/05/19 12:05 Consult Physician Routine Consulting Provider: Riri Saravia Consult Reason/Comments: medical management Do you want consulting provider notified?: Yes Primary care physician: Tricia Blackwell - Discharge Diagnosis(es) (1) Osteoarthritis of right hip Current Visit: Yes Status: Acute (2) S/P total hip arthroplasty Current Visit: Yes Status: Acute Hospital Course: This is a 58-year-old male with known history of degenerative arthritis of the right hip. The patient presents for evaluation. After discussion and consideration patient elects to proceed with total hip arthroplasty. The patient is seen preoperatively by Dr. Mace and medically cleared for surgery by their primary care physician. Patient is admitted to [facility] on 02/05/2019 for total hip arthroplasty. The procedures performed without complication or sequelae. The patient is doing well postoperatively. Labs and vital signs are stable on day of discharge. On day of discharge patient's hip incision is healing well. There is minimal erythema. There is no drainage noted at this time. There is minimal soft tissue swelling to the hip and thigh. Patient has full foot and ankle motion without difficulty or pain. Calf is soft and nontender to palpation. Sonal rovascular status to the right lower extremity is intact. Patient is discharged home in good condition. Opioid start talking form is reviewed and signed at patient bedside. Please see med rec for accurate list of home medications. Plan - Discharge Summary Discharge Rx Participant: No New Discharge Prescriptions: New Aspirin 325 mg PO BID #60 tab HYDROcodone/APAP 5-325MG [[place] 5-325] 1 - 2 tab PO Q6HR PRN #56 tab PRN Reason: Pain Sennosides [Senokot] 2 tab PO DAILY PRN #60 tablet PRN Reason: Constipation No Action amLODIPine BESYLATE [Norvasc] 5 mg PO DAILY Omeprazole [PriLOSEC] 20 mg PO DAILY rOPINIRole HCL [Requip] 0.5 mg PO HS Levothyroxine Sodium [Synthroid] 50 mcg PO DAILY HYDROcodone/APAP 10-325MG [[place] 10-325] 1 tab PO DAILY PRN PRN Reason: Pain Furosemide [Lasix] 40 mg PO DAILY #30 tablet Spironolactone [Aldactone] 25 mg PO DAILY #30 tab Aspirin 325 mg PO DAILY Propranolol [Inderal] 10 mg PO TID Multivitamins, Thera [Multivitamin (formulary)] 1 tab PO DAILY Meloxicam 15 mg PO DAILY Gabapentin [Neurontin] 300 mg PO HS Discharge Medication List Omeprazole [PriLOSEC] 20 mg PO DAILY 07/29/13 [History] amLODIPine BESYLATE [Norvasc] 5 mg PO DAILY 07/29/13 [History] HYDROcodone/APAP 10-325MG [[place] 10-325] 1 tab PO DAILY PRN 04/20/18 [History] Levothyroxine Sodium [Synthroid] 50 mcg PO DAILY 04/20/18 [History] rOPINIRole HCL [Requip] 0.5 mg PO HS 04/20/18 [History] Furosemide [Lasix] 40 mg PO DAILY #30 tablet 04/23/18 [Rx] Spironolactone [Aldactone] 25 mg PO DAILY #30 tab 04/23/18 [Rx] Aspirin 325 mg PO DAILY 12/31/18 [History] Gabapentin [Neurontin] 300 mg PO HS 01/31/19 [History] Meloxicam 15 mg PO DAILY 01/31/19 [History] Multivitamins, Thera [Multivitamin (formulary)] 1 tab PO DAILY 01/31/19 [History] Propranolol [Inderal] 10 mg PO TID 01/31/19 [History] Aspirin 325 mg PO BID #60 tab 02/06/19 [Rx] HYDROcodone/APAP 5-325MG [[place] 5-325] 1 - 2 tab PO Q6HR PRN #56 tab 02/06/19 [Rx] Sennosides [Senokot] 2 tab PO DAILY PRN #60 tablet 02/06/19 [Rx] Follow up Appointment(s)/Referral(s): Pablito Mace DO [Doctor of Osteopathic Medicine] - 2 Weeks Activity/Diet/Wound Care/Special Instructions: Weightbearing as tolerated with walker. Leave dressing intact. Dressing may be removed by home care nurse or by patient in 10 days. May shower with dressing on. Recommend use of compression stockings daily for at least 2 weeks during the day to help prevent swelling and blood clots. May remove at night before sleeping. Please follow-up with [facility] in 2 weeks and call with any questions or concerns, . Discharge Disposition: HOME WITH HOME HEALTH SERVICES
[2019-02-06] MEDS: LACTATED RINGERS 1,000 ML IV SCH (08:55)
[2019-02-06] MEDS ORDERED: SPIRONOLACTONE 25 MG TAB PO SCH (09:00)
[2019-02-06] MEDS ORDERED: MELOXICAM 7.5 MG TAB PO SCH (09:00)
[2019-02-06] MEDS ORDERED: MULTIVITAMINS, THERA 1 EACH TAB PO SCH (09:00)
[2019-02-06] MEDS ORDERED: amLODIPine 5 MG TAB PO SCH (09:00)
[2019-02-06] MEDS ORDERED: FUROSEMIDE 40 MG TAB PO SCH (09:00)
[2019-02-06] MEDS ORDERED: PANTOPRAZOLE 40 MG TABLET PO SCH (09:00)
== END 2019-02-06 12:08 | disposition home health service (06) | DRG 470 ==
LOC: 2ORMAIN 10:03 → 4SSUR 13:52
PROVIDERS: ADMIT Orthopaedic Surgery; ATTEND Orthopaedic Surgery
PROC: 0SR906A Replacement of Right Hip Joint with Oxidized Zirconium on Polyethylene Synthetic Substitute, Uncemented, Open Approach (ICD-10-PCS; principal; 2019-02-05 11:55)
DX: M16.11 Unilateral primary osteoarthritis, right hip (principal); I85.10 Secondary esophageal varices without bleeding; K76.6 Portal hypertension; G62.9 Polyneuropathy, unspecified; K74.60 Unspecified cirrhosis of liver; E03.9 Hypothyroidism, unspecified; I10 Essential (primary) hypertension; G25.81 Restless legs syndrome; M10.9 Gout, unspecified; F10.21 Alcohol dependence, in remission; Z79.82 Long term (current) use of aspirin; Z79.890 Hormone replacement therapy; Z79.1 Long term (current) use of non-steroidal anti-inflammatories (NSAID); Z79.899 Other long term (current) drug therapy; Z98.890 Other specified postprocedural states; Z87.891 Personal history of nicotine dependence; Z86.73 Personal history of transient ischemic attack (TIA), and cerebral infarction without residual deficits; Z85.820 Personal history of malignant melanoma of skin; Z82.49 Family history of ischemic heart disease and other diseases of the circulatory system
CPT/HCPCS: 73501; 85025; 86850; 86891; 86900; 86901; 88305; 88311

== ENCOUNTER → 2019-09-02 | Outpatient (CLI) | payer OTHER ==
[~2019-09-02] MED LIST changes: -ACETAMINOPHEN TAB 500 MG TAB PO ONE; -DEXAMETHASONE SOD PHOSPHATE 10 MG/ML 1 ML VIAL IV ONE; -GABAPENTIN 300 MG CAP PO ONE; -HYDROmorphone 0.5 MG/0.5 ML SYRINGE IVP PRN; +HYDROmorphone 0.5 MG/0.5 ML SYRINGE ONE; -LIDOCAINE 1% 20 ML VIAL (10MG/ML) FOR IV START INTRADERMA PRN; -MELOXICAM 7.5 MG TAB PO ONE; -ROPIVACAINE 246.25 MG, EPINEPHrine 0.5 MG, KETOROLAC 30 MG, cloNIDine HCL/PF 80 MCG, WA... MISCELLANE ONE; -TRANEXAMIC ACID 1,000 MG in SODIUM CHLORIDE 0.9% 100 ML IVPB ONE
--- NOTE | 2019-09-02 14:42 | US ---
EXAMINATION TYPE: US liver DATE OF EXAM: 09/02/2019 COMPARISON: NONE CLINICAL HISTORY: Alcoholic cirrosis K70.30. Cirrhoisis EXAM MEASUREMENTS: Liver Length: 14.2cm Gallbladder Wall: .4 cm CBD: .4 cm Right Kidney: 9.9 x 4.6 x 3.9 cm Pancreas: Obscured by bowel gas Liver: Increased attenuation Gallbladder: Multiple stones seen small amount of fluid Evidence for sonographic Duque's sign: No CBD: wnl Right Kidney: wnl IMPRESSION: 1. Multiple gallstones identified with a small amount of pericholecystic fluid. Gallbladder wall is m ildly thickened. 2. Increased attenuation throughout the liver may reflect fatty liver and/or hepatocellular disease. Correlate clinically
== END | disposition home or self-care (01) ==
LOC: RADUSWWP 14:14
PROVIDERS: ATTEND Internal Medicine Gastroenterology
DX: K80.20 Calculus of gallbladder without cholecystitis without obstruction (principal)
CPT/HCPCS: 76705

== ENCOUNTER → 2020-02-14 | Outpatient (CLI) | payer OTHER ==
--- NOTE | 2020-02-14 13:19 | US ---
EXAMINATION TYPE: US liver DATE OF EXAM: 02/14/2020 COMPARISON: US CLINICAL HISTORY: K70.30 Alcoholic cirrhosis of liver w/o ascites. Patient stated does not drink alco hol now. EXAM MEASUREMENTS: Liver Length: 14.7 cm Gallbladder Wall: 0.2 cm CBD: 0.4 cm Right Kidney: 9.9 x 5.9 x 5.8 cm Pancreas: hyperechoic Liver: no masses seen; portal vein PW and Color flow is to liver; hepatic vein PW and Color flow is to IVC Gallbladder: multiple, mobile and shadowing gallstones; pericholecystic fluid noted in spine positio n at fundus, but is not seen in LLD. Evidence for sonographic Duque's sign: no CBD: wnl Right Kidney: No hydronephrosis or masses seen; hyperechoic parallel, linear focus noted medial mid pole suggests vessel wall calcifications. IMPRESSION: 1. Cholelithiasis. Some pericholecystic fluid is present. Correlate for acute cholecystitis.
== END | disposition home or self-care (01) ==
LOC: RADUSWWP 11:00
PROVIDERS: ATTEND Internal Medicine Gastroenterology
DX: K80.20 Calculus of gallbladder without cholecystitis without obstruction (principal); K82.8 Other specified diseases of gallbladder
CPT/HCPCS: 76705

== ENCOUNTER 2020-03-10 06:36 | Day surgery (SDC) | payer OTHER ==
[2020-03-04 12:10] VITALS: BMI 30.5
[~2020-03-10 06:36] MED LIST changes: +ACETAMINOPHEN TAB 500 MG TAB PO PRN; +DEXAMETHASONE SOD PHOSPHATE 4 MG/ML 1 ML VIAL IV ONE; +HEPARIN SODIUM,PORCINE 5,000 UNIT/ML 1 ML VIAL SQ PRN; -HYDROmorphone 0.5 MG/0.5 ML SYRINGE ONE; +LIDOCAINE 1% (10MG/ML) FOR IV START INTRADERMA PRN; +MIDAZOLAM 2 MG/2 ML VIAL IV PRN; +ONDANSETRON 4 MG/2 ML VIAL IVP ONE
[2020-03-10] MEDS ORDERED: HYDROmorphone 0.5 MG/0.5 ML SYRINGE IVP PRN (07:00)
[2020-03-10 07:02] VITALS: TEMP 97.6
[2020-03-10] MEDS: LACTATED RINGERS 1,000 ML IV SCH ×2 (07:04→10:26)
[2020-03-10] MEDS ORDERED: BUPIVACAINE (PF) 0.25% 30 ML VIAL SQ ONE (07:25)
[2020-03-10] MEDS ORDERED: GLYCOPYRROLATE 0.2 MG/ML 2 ML VIAL ONE (07:51)
[2020-03-10] MEDS ORDERED: HYDROmorphone (PF) 1 MG/ML ONE (07:51)
[2020-03-10] MEDS ORDERED: ROCURONIUM 10 MG/ML (10 ML VIAL) IV ONE (07:51)
[2020-03-10] MEDS ORDERED: MIDAZOLAM 2 MG/2 ML VIAL ONE (07:51)
[2020-03-10] MEDS ORDERED: NEOSTIGMINE 1 MG/ML 10 ML VIAL ONE (07:51)
[2020-03-10] MEDS ORDERED: PROPOFOL 10 MG/ML 20 ML VIAL IV ONE (07:51)
[2020-03-10] MEDS ORDERED: SUCCINYLCHOLINE CHLORIDE 100 MG/5 ML SYR IV ONE (07:51)
[2020-03-10] MEDS ORDERED: fentaNYL (PF) 50 MCG/ML 2 ML AMP ONE (07:51)
[2020-03-10] MEDS ORDERED: LIDOCAINE 1% INJ 10MG/ML (20 ML MDV) ONE (07:51)
--- NOTE | 2020-03-10 08:54 | P.GSHP ---
History of Present Illness H&P Date: 03/10/20 Chief Complaint: Right upper quadrant pain This is a 6-2-qeta-old male who presents today for laparoscopic cholestatic. Patient's had complaints of right upper quadrant pain. His recent ultrasound shows evidence of cholelithiasis. Patient's a known history of alcoholic ci rrhosis. I discussed the risk of surgery including bleeding, bile leak. 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), gout, hx melanoma, CIRRHOSIS OF LIVER History of Any Multi-Drug Resistant Organisms: None Reported Past Surgical History: Back Surgery, Hernia Repair Additional Past Surgical History / Comment(s): back-plate,screws and pins , melanoma removed from rt hand, colonoscopy right inguinal hernia repair Past Anesthesia/Blood Transfusion Reactions: No Reported Reaction Smoking Status: Current every day smoker - Past Family History Mother Family Medical History: No Reported History Father History Unknown: Yes Medications and Allergies Home Medications Medication Instructions Recorded Confirmed Type Omeprazole [PriLOSEC] 20 mg PO DAILY 07/29/13 03/04/20 History amLODIPine BESYLATE [Norvasc] 5 mg PO DAILY 07/29/13 03/04/20 History HYDROcodone/APAP 10-325MG [Monon 1 tab PO DAILY PRN 04/20/18 03/04/20 History 10-325] rOPINIRole HCL [Requip] 0.5 mg PO HS 04/20/18 03/04/20 History Aspirin 325 mg PO DAILY 12/31/18 03/04/20 History Gabapentin [Neurontin] 300 mg PO HS 01/31/19 03/04/20 History Meloxicam 15 mg PO DAILY 01/31/19 03/04/20 History Multivitamins, Thera [Multivitamin 1 tab PO DAILY 01/31/19 03/04/20 History (formulary)] Propranolol [Inderal] 10 mg PO TID 01/31/19 03/04/20 History Furosemide [Lasix] 40 mg PO QAM 03/04/20 03/04/20 History Levothyroxine Sodium [Synthroid] 75 mcg PO QAM 03/04/20 03/04/20 History Spironolactone [Aldactone] 50 mg PO QAM 03/04/20 03/04/20 History Allergies Allergy/AdvReac Type Severity Reaction Status Date / Time No Known Allergies Allergy Verified 03/10/20 06:59 Surgical - Exam Vital Signs Temp Pulse Resp BP Pulse Ox 97.6 F 75 16 157/72 97 03/10/20 07:01 03/10/20 07:01 03/10/20 07:01 03/10/20 07:01 03/10/20 07:01 - General well developed, well nourished, no distress - Eyes PERRL - ENT normal pinna - Neck no masses - Respiratory normal expansion - Cardiovascular Rhythm: regular - Abdomen Abdomen: soft, non tender Assessment and Plan Assessment: Cholelithiasis Alcoholic cirrhosis We'll perform laparoscopic cholecystectomy.
--- NOTE | 2020-03-10 08:57 | P.OP ---
Date of Procedure: 03/10/20 Preoperative Diagnosis: Cholelithiasis Cholecystitis Postoperative Diagnosis: Cholelithiasis Cholecystitis CIRRHOSIS Procedure(s) Performed: Laparoscopic cholecystectomy Anesthesia: LUZ Surgeon: Lorenzo Downing Estimated Blood Loss (ml): 10 Pathology: other (gAll bladder) Condition: stable Disposition: PACU Description of Procedure: The patient was placed on the operating table. The patient received a general endotracheal tube anesthesia. The patients abdomen was prepped and draped in the usual sterile fashion. Through an infraumbilical stab incision, the fascia of the anterior abdominal wall was grasped with a pair of Kochers and then the Veress needle was placed in the peritoneal cavity. Position of the Veress needle was confirmed with positive drop test. The abdomen was then insufflated. After adequate insufflation, the 10 mm trocar was placed in the peritoneal cavity. Following this the laparoscope was placed in the peritoneal cavity. The patient was placed in the head-up, right side up position and then a 5 mm trocar was placed in the right lateral and right subcostal position under direct visualization. A 8 mm trocar was placed in the epigastric position. The gallbladder was grasped in the fundus and infundibulum. Traction on the gallbladder was placed in the lateral and the cephalad positions. The triangle of Calot was visualized.. The cystic duct was bluntly dissected until the union of the cystic duct and common bile duct was seen. A critical view of safety was achieved. The cystic duct was then divided and sealed with the Harmonic scissors. A PDS Endoloop was then placed throughout the cystic duct stump. The cystic artery divided and sealed with the Harmonic scissors. The gallbladder was then removed from the liver bed using Harmonic scissors. The gallbladder was then extracted through the epigastric port site. Operative field was checked for any bleeding spots and Harmonic scissors was used to coagulate the liver bed. The abdomen was irrigated. The trocars were removed. The skin was closed using interrupted 3-0 Vicryl suture. Dermabond dressing were applied. The patient tolerated the procedure well.
[2020-03-10] MEDS ORDERED: diphenhydrAMINE 50 MG/ML 1 ML VIAL IVP ONE (09:06)
[2020-03-10] MEDS ORDERED: hydrALAZINE HCL 20 MG/ML 1 ML VIAL IVP ONE (09:15)
[2020-03-10 09:22] VITALS: RESP 16
[2020-03-10 11:36] VITALS: BP 145/70; PULSE 71
== END 2020-03-10 12:18 | disposition home or self-care (01) ==
LOC: OR 06:36
PROVIDERS: ATTEND Surgery
DX: K80.10 Calculus of gallbladder with chronic cholecystitis without obstruction (principal); K82.8 Other specified diseases of gallbladder; K70.30 Alcoholic cirrhosis of liver without ascites; F10.10 Alcohol abuse, uncomplicated; I10 Essential (primary) hypertension; I69.398 Other sequelae of cerebral infarction; R20.0 Anesthesia of skin; M10.9 Gout, unspecified; K08.89 Other specified disorders of teeth and supporting structures; F17.210 Nicotine dependence, cigarettes, uncomplicated; Z85.820 Personal history of malignant melanoma of skin; Z98.890 Other specified postprocedural states; Z87.19 Personal history of other diseases of the digestive system; Z79.899 Other long term (current) drug therapy; Z79.82 Long term (current) use of aspirin; Z79.1 Long term (current) use of non-steroidal anti-inflammatories (NSAID); Z79.890 Hormone replacement therapy; Y90.9 Presence of alcohol in blood, level not specified
CPT/HCPCS: 88304; 47562; J2250; J0360; J1200; J1644; J1100; J2710; J0690; J2405; J2001; J3010; J1170; J0330; J2704

== ENCOUNTER → 2020-07-31 | Outpatient (CLI) | payer MEDICARE, OTHER ==
--- NOTE | 2020-07-31 16:11 | US ---
EXAMINATION TYPE: US liver DATE OF EXAM: 07/31/2020 COMPARISON: US 09/02/2019 CLINICAL HISTORY: K70.30 Alcoholic cirrhosis of liver without ascites. EXAM MEASUREMENTS: Liver Length: 11.4 cm Gallbladder Wall: Surgically absent CBD: 0.6 cm Right Kidney: 9.9 x 5.7 x 4.7 cm Pancreas : not well visualized Liver: wnl Gallbladder: Surgically absent CBD: wnl Right Kidney: No hydronephrosis or masses seen The liver parenchyma is mildly heterogeneous which may represent the patient's history of cirrhosis. IMPRESSION: 1. The pancreas is not well visualized due to overlying bowel gas. 2. Cholecystectomy. 3. The liver parenchyma is mildly heterogeneous which may correspond with patient's history of cirrho sis. This would be better evaluated with CT or MRI using liver protocol with IV contrast. A small und erlying mass is not excluded. No discrete hepatic mass or intrahepatic biliary dilatation. The common duct measures up to 6 mm, within normal limits.
[2020-07-31 22:30] LABS: Basophils # (A) 0.05 X 10*3/uL (0.00-0.10); Basophils % (A) 0.7 %; Eosinophils % (A) 4.3 %; HCT 39.2 % (39.6-50.0); HGB 13.8 g/dL (13.0-17.0); Lymphocytes # (A) 1.51 X 10*3/uL (0.90-5.00); Lymphocytes % (A) 21.9 %; MCH 34.4 pg (27.0-32.0); MCHC 35.2 g/dL (32.0-37.0); MCV 97.8 fL (80.0-97.0); Mean Platelet Volume 11.5 fL (9.5-12.2); Monocytes # (A) 0.74 X 10*3/uL (0.20-1.00); Monocytes % (A) 10.7 %; Neutrophils # (A) 4.28 X 10*3/uL (1.80-7.70); Neutrophils % (A) 62.1 %; Platelet Count 171 X 10*3/uL (140-440); RBC 4.01 X 10*6/uL (4.40-5.60)
[2020-07-31 23:01] LABS: INR 0.98 (0.90-1.11); Prothrombin Time 10.7 sec (9.9-11.9)
[2020-08-01 10:17] LABS: % Iron Saturation 24.38 (15.00-50.00); African American GFR (CKD) 57.4 (60.0-200.0); Albumin 4.3 g/dL (3.80-4.90); Albumin/Globulin Ratio 1.3 (1.60-3.17); Anion Gap 8.4 mmol/L (4.00-12.00); BUN/Creat Ratio 12.67 Ratio (12.00-20.00); Calcium 9.9 mg/dL (8.7-10.3); Carbon Dioxide 21.6 mmol/L (21.6-31.8); Globulin 3.3 g/dL (1.6-3.3); Non-African American GFR(CKD) 49.5 (60.0-200.0); Potassium 5.1 mmol/L (3.5-5.5); Total Bilirubin 1.6 mg/dL (0.3-1.2); Total Protein 7.6 g/dL (6.2-8.2)
[2020-08-01 10:23] LABS: Ferritin 43.9 ng/mL (22.0-322.0)
== END | disposition home or self-care (01) ==
LOC: LABWHC1 14:47
PROVIDERS: ATTEND Internal Medicine Gastroenterology
DX: K70.30 Alcoholic cirrhosis of liver without ascites (principal); G25.81 Restless legs syndrome
CPT/HCPCS: 36415; 76705; 80053; 82105; 82728; 83540; 83550; 85025; 85610

== ENCOUNTER → 2020-08-21 | Outpatient (CLI) | payer MEDICARE, OTHER ==
--- NOTE | 2020-08-22 05:43 | MR ---
EXAMINATION TYPE: MR liver wo/w con DATE OF EXAM: 08/21/2020 COMPARISON: None HISTORY: alcoholic cirrhosis CONTRAST: Standard multiplanar, multisequence MRI departmental protocol utilizing 8 mL intravenous Gadavist danii olinium contrast. There is apparent cholecystectomy. Liver is somewhat irregular in its contour and consistent with cir rhosis. Spleen is large and measures 14 cm. Kidneys have normal size and contour. There is no hydronephrosis. There is no adrenal mass. There is no evidence of pancreatic mass. There are some varices at the posterior aspect of the tail of the tan creas. The common bile duct is large and measures up to 12 mm. I see no filling defect. The pancreati c duct is not dilated. There is inhomogeneous signal pattern in the liver consistent with cirrhosis. There is no ascites. There is no sign of a bowel obstruction. There is no sign of pleural effusion. Contrast images show enhancement of the portal venous system. There is no evidence of thrombosis. Kid neys show symmetrical enhancement. There is no pathologic enhancement in the liver. There is no discr ete liver mass. IMPRESSION: Irregular liver with inhomogeneous signal pattern is consistent with hepatic cirrhosis. Mild splenome martha and splenic varices consistent with chronic portal venous hypertension. No discrete liver mass.
== END | disposition home or self-care (01) ==
LOC: RADMRIMAIN 06:38
PROVIDERS: ATTEND Nurse Practitioner
DX: I86.8 Varicose veins of other specified sites (principal); R16.1 Splenomegaly, not elsewhere classified
CPT/HCPCS: 74183; A9585

== ENCOUNTER → 2020-08-24 | Outpatient (CLI) | payer MEDICARE, OTHER ==
--- NOTE | 2020-08-25 01:16 | MR ---
EXAMINATION TYPE: MR shoulder RT wo con DATE OF EXAM: 08/24/2020 COMPARISON: 01/01/2013 HISTORY: R shoulder pain Multiplanar multiecho imaging of the right shoulder was performed without contrast. There is large vertical defect through the supraspinatus tendon. There is some partial retraction of the tendon. There is subacromial joint space narrowing. There is extensive hypertrophic spurring at t he AC joint with impingement on the supraspinatus muscle. The glenohumeral joint is anatomic. The gle noid diamond appear intact. Subscapularis tendon is intact. The biceps tendon appears intact. I see no evidence of a fracture. Humeral head is intact. IMPRESSION: Large tear of the rotator cuff supraspinatus tendon. This is a change compared to old exam. There is extensive hypertrophic spurring at the AC joint that has progressed compared to old exam and there is increased impingement on the supraspinatus muscle and tendon.
== END | disposition home or self-care (01) ==
LOC: RADMRIMAIN 12:51
PROVIDERS: ATTEND Orthopaedic Surgery
DX: M75.111 Incomplete rotator cuff tear or rupture of right shoulder, not specified as traumatic (principal)

== ENCOUNTER 2020-09-15 06:52 | Day surgery (SDC) | payer MEDICARE, OTHER ==
[2020-09-11 14:50] VITALS: BMI 28.1
[~2020-09-15 06:52] MED LIST changes: -ACETAMINOPHEN TAB 500 MG TAB PO PRN; -DEXAMETHASONE SOD PHOSPHATE 4 MG/ML 1 ML VIAL IV ONE; -HEPARIN SODIUM,PORCINE 5,000 UNIT/ML 1 ML VIAL SQ PRN; +LACTATED RINGERS 1,000 ML IV SCH; -LIDOCAINE 1% (10MG/ML) FOR IV START INTRADERMA PRN; -MIDAZOLAM 2 MG/2 ML VIAL IV PRN; -ONDANSETRON 4 MG/2 ML VIAL IVP ONE
[2020-09-15 07:28] VITALS: RESP 16; TEMP 97.5
[2020-09-15] MEDS ORDERED: LIDOCAINE 1% (10MG/ML) FOR IV START INTRADERMA ONE (07:28)
[2020-09-15] MEDS ORDERED: PROPOFOL 10 MG/ML 20 ML VIAL IV ONE (07:50)
[2020-09-15] MEDS ORDERED: LIDOCAINE 1% INJ 10MG/ML (20 ML MDV) ONE (07:50)
--- NOTE | 2020-09-15 08:27 | P.PCN ---
Date of Procedure: 09/15/20 Description of Procedure: Brief history: Patient is a pleasant 60-year-old male presenting for outpatient esophagogastroduodenoscopy and colonoscopy for evaluation of varices, cirrhosis of the liver and screening for malignant neoplasm of the colon. Patient has a known history of decompensated cirrhosis. Currently on diuretic therapy at home. Last EGD in 12/2018 significant for large varices and portal hypertensive gastropathy on Inderal therapy. He reports a remote history of colonoscopy ap proximately 8 years ago. Procedure performed: Esophagogastroduodenoscopy biopsy Colonoscopy Estimated blood loss: Minimal. Preoperative diagnosis: Cirrhosis of the liver, esophageal varices, screening for malignant neoplasm of the colon, last colonoscopy at least 8 years ago Anesthesia: MAC Procedure: After informed consent was obtained from the patient was brought into the endoscopy unit and IV sedation was administered by anesthesia under continuous monitoring. Initially upper endoscopy was done. The Olympus GF 190 video endoscope was inserted into the mouth and esophagus intubated without any difficulty and was gradually advanced into the stomach and duodenum and carefully examined. The bulb and second part of the duodenum appeared normal, with biopsies taken. The scope was then withdrawn into the stomach adequately insufflated with air and upon careful examination the antrum and body, cardia and fundus appeared normal, except for diffuse erythema consistent with mild p ortal hypertensive gastropathy with biopsies of the antrum and body taken. The scope was then withdrawn into the esophagus. The GE junction was located at 40 cm to the incisors. The patient had a few columns of large varices in the distal esophagus treated with esophageal variceal band ligation with 7 bands placed. Patient tolerated the procedure well. At this time the patient continued to remain sedation. Initial digital rectal examination was normal. Olympus CF 190 video colonoscope was then inserted into the rectum and gradually advanced to the cecum without any difficulty. Careful examination was performed as the scope was gradually being withdrawn. The prep was excellent. The cecum, ascending colon, transverse colon, descending colon, sigmoid colon and rectum appeared normal. Retroflexion was performed in the rectum and no lesions were noted, moderate internal hemorrhoids seen. Patient tolerated the procedure well. Impression: 1. Mild portal hypertensive gastropathy. Large esophageal varices status post band ligation 7. Biopsies of the duodenum, antrum and body. 2. Normal-appearing colon from rectum to cecum. Internal hemorrhoids. Recommendations: Findings of this examination were discussed with the patient as well as his family. Okay to resume diet, recommend soft or full liquid today and then low- sodium tomorrow. Continue diuretic therapy. Continue Inderal. Await pathology from biopsies. Recommend repeat colonoscopy in 10 years for screening for malignant neoplasm of the colon and repeat EGD in 3-4 weeks for treatment of varices.
[2020-09-15 08:50] VITALS: BP 128/70; PULSE 62
== END 2020-09-15 09:04 | disposition home or self-care (01) ==
LOC: ORWHC2ENDO 06:52
PROVIDERS: ATTEND Internal Medicine
DX: I85.10 Secondary esophageal varices without bleeding (principal); K76.6 Portal hypertension; K74.60 Unspecified cirrhosis of liver; K64.8 Other hemorrhoids; K29.50 Unspecified chronic gastritis without bleeding; K31.89 Other diseases of stomach and duodenum; I10 Essential (primary) hypertension; E78.5 Hyperlipidemia, unspecified; F17.210 Nicotine dependence, cigarettes, uncomplicated; Z86.73 Personal history of transient ischemic attack (TIA), and cerebral infarction without residual deficits; E07.9 Disorder of thyroid, unspecified; K21.9 Gastro-esophageal reflux disease without esophagitis; Z79.82 Long term (current) use of aspirin; Z79.890 Hormone replacement therapy
CPT/HCPCS: 88305; 45378; 43239; 43244; J2001; J2704

== ENCOUNTER 2020-10-09 06:04 | Day surgery (SDC) | payer MEDICARE, OTHER ==
[2020-10-07 17:27] VITALS: BMI 27.3
--- NOTE | 2020-10-08 22:05 | HP ---
HISTORY AND PHYSICAL CHIEF COMPLAINT: Right shoulder pain. HISTORY OF PRESENT ILLNESS: The patient is a 60-year-old, right-hand dominant, retired gentleman who presents with progressive right shoulder pain for the past 5-6 years worsening recently. He is having pain with overhead use and at night. He has tried therapy in addition to medications without much relief. He notes it bothers him daily. It is severely limiting. PAST MEDICAL HISTORY: Significant for arthritis, hypertension, hypothyroidism. PAST SURGICAL HISTORY: Significant for previous lumbar surgery, cholecystectomy, hernia repair, left rotator cuff repair and right hip surgery. CURRENT MEDICATIONS: Norvasc, aspirin, Prilosec, Lasix, gabapentin, hydrocodone, Levoxyl, meloxicam, propranolol, spironolactone. ALLERGIES: He denies drug allergies. FAMILY HISTORY: Negative. SOCIAL HISTORY: Significant for 1 pack per day tobacco use and heavy alcohol use. REVIEW OF SYSTEMS: Sixteen-point review of systems is otherwise reviewed and is noncontributory. PHYSICAL EXAMINATION: On examination, the patient is approximately 5 foot 7, 190 pounds of mesomorphic habitus. HEENT exam is nonfocal. NECK is supple. On examination of the right shoulder, he is tender about the anterior subacromial space and the acromioclavicular joint. He has moderate subacromial crepitus. Active range of motion, forward elevation 135, external rotation with arm to side 60, internal rotation to L4. Motor strength is 5 minus over 5 for external rotation and 4+ over 5 for abduction. Impingement test, Neer tests and cross-body abduction is positive. His distal neurovascular otherwise appears to be intact in the right upper extremity. MRI report right shoulder 08/24/2020 shows a large rotator cuff tear involving the supraspinatus with some retraction. Acromioclavicular joint arthritis and subacromial impingement are noted. IMPRESSION: 1. Right shoulder impingement with symptomatic rotator cuff tear. 2. Right acromioclavicular joint arthritis. 3. Daily alcohol use. RECOMMENDATIONS: I talked to the patient at length regarding his condition and treatment options. At this point, he is quite symptomatic despite attempting conservative measures. After thorough discussion, he opts to proceed with surgery. We will plan to proceed with arthroscopic evaluation with probable subacromial decompression, rotator cuff repair versus debridement, possible distal clavicular resection along with biceps tenotomy as needed. We will likely perform that as an outpatient procedure. Risks and benefits were discussed at length in layman's terms. MMODL / IJN: [id number] /
[~2020-10-09 06:04] MED LIST changes: +DEXAMETHASONE SOD PHOSPHATE 4 MG/ML 1 ML VIAL IV ONE; +LIDOCAINE 1% (10MG/ML) FOR IV START INTRADERMA PRN; +MIDAZOLAM 2 MG/2 ML VIAL IV PRN; +ONDANSETRON 4 MG/2 ML VIAL IVP ONE
[2020-10-09] MEDS ORDERED: HYDROmorphone 0.5 MG/0.5 ML SYRINGE IVP PRN (07:00)
[2020-10-09] MEDS ORDERED: SUCCINYLCHOLINE CHLORIDE 100 MG/5 ML SYR IV ONE (07:44)
[2020-10-09] MEDS ORDERED: PROPOFOL 10 MG/ML 20 ML VIAL IV ONE (07:44)
[2020-10-09] MEDS ORDERED: GLYCOPYRROLATE 0.2 MG/ML 2 ML VIAL ONE (07:44)
[2020-10-09] MEDS ORDERED: LIDOCAINE 1% INJ 10MG/ML (20 ML MDV) ONE (07:44)
[2020-10-09] MEDS ORDERED: ROPIVACAINE 5 MG/ML 30 ML VIAL ONE (07:44)
[2020-10-09] MEDS ORDERED: fentaNYL (PF) 50 MCG/ML 2 ML AMP ONE (07:44)
[2020-10-09] MEDS ORDERED: DEXAMETHASONE SOD PHOSPHATE 4 MG/ML 1 ML VIAL ONE (07:44)
[2020-10-09] MEDS ORDERED: ePHEDrine SULFATE/0.9% NACL/PF 50 MG/5 ML SYRINGE IV ONE (07:44)
[2020-10-09] MEDS ORDERED: KETAMINE 10 MG/ML 20 ML VIAL ONE (07:44)
--- NOTE | 2020-10-09 08:46 | P.ANPRN ---
Procedure Note - Anesthesia - Nerve Block Performed Right Interscalene Single Time Out Performed: Yes ([id number]) Date of Procedure: 10/09/20 Procedure Start Time: :59 Procedure Stop Time: 07:07 Location of Patient: PreOp Indication: Acute Post-Operative Pain, Dx/Pain Location (Right Shoulder), Requested by Surgeon Specifically requested for management of pain by : Sandeep Arreola Sedation Type: Sedate with meaningful contact maintained Preparation: Sterile Prep Position: Supine Catheter: None Needle Types: Pajunk Needle Gauge: 21 Ultrasound used to visualize needle placement: Yes Ultrasound used to observe medication spread: Yes Injectate: 0.5% Ropivacaine (see comment for volume) (30 cc and decadron 4 mg) Blood Aspirated: No Pain Paresthesia on Injection Noted: No Resistance on Injection: Normal Image Stored and Saved: Yes Events: Uneventful and Well Tolerated
[2020-10-09] MEDS ORDERED: EPINEPHrine (PF) 1 ML in SODIUM CHLORIDE 0.9% IRRIGATIO 3,000 ML IRRIGATION ONE ×2 (08:55→08:56)
--- NOTE | 2020-10-09 09:39 | P.OP ---
Date of Procedure: 10/09/20 Preoperative Diagnosis: Symptomatic right rotator cuff tear Postoperative Diagnosis: 2 cm rotator cuff tear, rupture proximal biceps, acromioclavicular joint arthritis/impingement Procedure(s) Performed: Right shoulder arthroscopic subacromial decompression/rotator cuff repair/distal clavicular resection Implants: Arthrex 4.75 mm swivel lock anchor 1, 5.5 mm swivel lock anchor 1 Anesthesia: LUZ, regional Surgeon: Sandeep Arreola Credit Rating Checker #1: Tera Darling Estimated Blood Loss (ml): 10 Pathology: none sent Condition: stable Disposition: PACU Indications for Procedure: The patient's a 60-year-old male presents with persistent/progressive right shoulder pain despite conservative measures. A discussion of the risks and benefits of operative intervention versus continued conservative measures made with patient. He opted to proceed with surgery. Operative risks to include infection, neurovascular injury, development of blood clots, possible tendon rerupture, possible postoperative stiffness, possible need for subsequent procedures was discussed. Informed consent was obtained. Operative Findings: As below Description of Procedure: The patient was brought to the operating room, and after induction of general anesthesia was placed in a beachchair position. A preoperative interscalene block was placed for postoperative analgesia. I examined the right shoulder. There was no gross block to passive motion or gross glenohumeral instability. The right upper extremity was prepped and draped in normal fashion. The bony outlines the acromion, distal clavicle, and coracoid process were outlined with a skin marker. The glenohumeral joint was inflated with 50 mL of saline utilizing a spinal needle from posterior approach. A posterior portal was made through a 5 mm skin incision 1 cm medial and inferior to the posterior lateral border time. A blunt trocar was used to easily into the joint. Diagnostic arthroscopy was performed. An anterior portal was made just lateral to the coracoid process entering the joint above the subscapularis tendon. The subscapularis tendon appeared to be intact. Anterior labrum was intact. The inferior recess was inspected. The posterior labrum was intact. The line of the biceps appeared to have previously ruptured off the superior labrum. On inspection the rotator cuff, a full-thickness tear involving the supraspinatus was noted with minimal retraction. The arthroscope was placed into the subacromial space. A lateral portal was made 2 centimeters inferior to the anterior lateral border of the acromion. The rotator cuff was then mobilized with a traction suture. This was then easily brought back to the greater tuberosity. The soft tissue on the undersurface of the acromion was debrided with a motorized shaver and electrocautery clearly defining the anterior medial and lateral borders as well as the distal clavicle. An anterior inferior acromioplasty was performed with a motorized alison starting anterolateral, then extending this posteriorly, then extending this medially. I converted to a flat acromion and this was verified in the posterior and lateral viewing portals. There appeared to be acromioclavicular joint arthritis along with impingement from the distal clavicle. The distal 4 mm of clavicle was resected with a motorized bur. The greater tuberosity was lightly decorticating with a shaver down to a bleeding bony surface. An accessory superior lateral portal was made just off the lateral edge of the acromion for anchor placement. A 4.75 mm mm swivel lock anchor was then placed just off the articular surface with the appropriate starting awl. Good purchase was obtained. These fiber tapes were then passed the rotator cuff with a scorpion suture passer. A traction suture was incorporated in the lateral anchor that was placed. 5.5 mm swivel lock anchor was placed laterally. Good purchase was obtained. Final arthroscopic view showed adequate compression at the footprint. The arthroscope was then removed. The portals were closed with simple 3-0 nylon sutures. A sterile dressing was applied in addition to a sling. The patient was then awoken from general anesthesia and transferred to recovery room in good condition. Blood loss was estimated at 10 mL. No complications were incurred. Sponge and needle counts were correct in the case. Tera DAVIS assisted and the major components of the case to include arm positioning, anchor placement, and rotator cuff repair.
[2020-10-09 09:50] VITALS: TEMP 96.9
[2020-10-09 09:54] VITALS: RESP 16
[2020-10-09 10:37] VITALS: BP 138/73; PULSE 62
== END 2020-10-09 11:04 | disposition home or self-care (01) ==
LOC: OR 06:04
PROVIDERS: ATTEND Orthopaedic Surgery
DX: M75.101 Unspecified rotator cuff tear or rupture of right shoulder, not specified as traumatic (principal); M19.90 Unspecified osteoarthritis, unspecified site; I10 Essential (primary) hypertension; E03.9 Hypothyroidism, unspecified; Z79.899 Other long term (current) drug therapy; F17.210 Nicotine dependence, cigarettes, uncomplicated; K21.9 Gastro-esophageal reflux disease without esophagitis; Z86.73 Personal history of transient ischemic attack (TIA), and cerebral infarction without residual deficits; K70.30 Alcoholic cirrhosis of liver without ascites; Z79.82 Long term (current) use of aspirin
CPT/HCPCS: 64415; 76942; 29827; 29826; 29824; J2704; C1713 ×2; J2250; J1100; J0690; J2405; J0171; J2001; J3010; J2795; J0330

== ENCOUNTER → 2020-12-02 | Outpatient (CLI) | payer MEDICARE, OTHER ==
[2020-12-02 09:07] VITALS: BP 130/74; PULSE 63; RESP 18; TEMP 98.2
--- NOTE | 2020-12-02 09:19 | P.PAINCN ---
History of Present Illness - Reason for Consult Consult date: 12/02/20 - History of Present Illness This is 60 years old male with a chronic history of severe low back pain, patient had multiple surgical interventions on his back, leading lumbar laminectomy and fusion multilevels, continued to have severe low back pain and the pain currently localized in the low back area mainly on the right side with radiation to the right buttock area, patient has some numbness and tingling sensation in his feet and he reported that he had peripheral neuropathy is happened after hip surgery, she reported that the pain is constant and increases with any activity, interfering with her quality of life, he denies any motor or sensory deficit, patient done physical therapy previously without any significant improvement, continue to use [place] 10/325 and Neurontin and he continued to have pain . 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 quit drinking but has a drink now rarely Past Drug Use History: Marijuana Additional Drug Use History / Comment(s): USES MARIJUANA MOST DAYS-INSTRUCTED TO REFRAIN FROM USE FOR AT LEAST 24 HOURS PRIOR TO PROCEDURE - Past Family History Mother Family Medical History: No Reported History Father History Unknown: Yes Medications and Allergies Home Medications Medication Instructions Recorded Confirmed Type Omeprazole [PriLOSEC] 20 mg PO DAILY 07/29/13 10/09/20 History amLODIPine BESYLATE [Norvasc] 5 mg PO QAM 07/29/13 10/09/20 History HYDROcodone/APAP 10-325MG [[place] 1 tab PO DAILY PRN 04/20/18 10/09/20 History 10-325] rOPINIRole HCL [Requip] 4 mg PO HS 04/20/18 10/09/20 History Aspirin 325 mg PO DAILY 12/31/18 10/09/20 History Gabapentin [Neurontin] 300 mg PO BID 01/31/19 10/09/20 History Meloxicam 15 mg PO DAILY 01/31/19 10/09/20 History Multivitamins, Thera [Multivitamin 1 tab PO DAILY 01/31/19 10/09/20 History (formulary)] Propranolol [Inderal] 10 mg PO TID 01/31/19 10/09/20 History Furosemide [Lasix] 40 mg PO QAM 03/04/20 10/09/20 History Levothyroxine Sodium [Synthroid] 75 mcg PO QAM 03/04/20 10/09/20 History Spironolactone [Aldactone] 50 mg PO BID 03/04/20 10/09/20 History HYDROcodone/APAP 10-325MG [[place] 1 tab PO Q6HR PRN #28 tab 10/09/20 Rx 10-325] Allergies Allergy/AdvReac Type Severity Reaction Status Date / Time No Known Allergies Allergy Verified 10/09/20 06:24 Physical Exam Vitals: Vital Signs Temp Pulse Resp BP Pulse Ox 12/02/20 08:49 98.2 F 63 18 130/74 96 Physical Examinations : -Constitutiona : Cooperative , not in acute distress . -HEENT : nech : supple , no Lymphadenopathy , normal thyroid size . : eyes : no ptosis , no icterus, no photophobia . - neurologic : Cranial nerve II to XII intact , no focal neurological deffecit . -psychatric : alert , oriented X 3 , appropriate affect , intact judgment and insight . -Lymphatic : no Lymphadenopathy . - musculoskeltal : Lumber spine moter stegnth lower extremities ,thigh and legs 5/5 Right side , 5/5 Left side deep tendon reflexes : normal Knee Jerk , normal ankle Jerk lumber facet Loading Test =positive Right , positive Left Range of motion of the lumbar spine Flexion 30 degrees, extension 10 degrees strait leg raising test = positive at 60 degree on the right side , negative on the left side Fabere test= negative bilaterally. Sever tenderness over the Sacroiliac joint on the Right. Gaenslen test= positive right . Seated flexion test= positive right . Distraction test= positive right Sacroiliac compression test= positive right Results Comments: MRI of the lumbar spine done in 2017= lumbar fusion at L5-S1 and lumbar facet arthropathy and foraminal stenosis at L3 4 L4 5 Assessment and Plan Plan: Assessment and plan=1-right sacroiliitis. 2-lumbar radiculopathy. 3-Failed back surgery syndrome lumbar area. 4-lumbar spondylosis with lumbar facet arthropathy. he benefits from right sacroiliac joint steroid injection under fluoroscopy guidance. Time with Patient: Greater than 30 PQRS Measure Charge Sheet Measure #130: Documentation of Current Meds in Medical Chart: Patient's medications documented in chart Measure #226: Tobacco Use: Screen & Cessation Intervention: Pt screened for tobacco use AND intervention given Measure #111: Pneumonia Vaccination: Pneumococcal vaccine NOT administered or previously given Measure #47: Advance Care Plan: Advance care planning discussed & documented, pt chose/unable to give Measure #412: Opioid Treatment Agreement: No documentation of signed opioid treatment agreement Measure #408: Opioid Therapy Follow-up Evaluation: Patient had NO f/u eval minimum every 3 months during opioid therapy Measure #317: Preventitive Care & Scrn High Bld Press & F/U: Normal blood pressure, f/u not required Measure #128: Body Mass Index (BMI) Screening & Follow-up: BMI documented ABOVE normal parameters - f/u documented Measure #131: Pain Assessment & Follow-up: Pain positive & plan documented, Follow-up scheduled Measure #431: Unhealthy Alcohol Use Preventative Care & Scrn: Patient not identified as an unhealthy alcohol user Mode of Arrival: Ambulatory - Pain Location Lower Back Non-Pharmacological Interventions: Heat, Physical Therapy, Stretching Pharmacological Interventions: Medication PQRS Narrative: Smoking Status Unknown if ever smoked Blood Pressure 130/74 Pain Intensity [Lower Back] 8 Scale Used Numeric (1 - 10) Home Medications: Ambulatory Orders Omeprazole [PriLOSEC] 20 mg PO DAILY 07/29/13 amLODIPine BESYLATE [Norvasc] 5 mg PO QAM 07/29/13 HYDROcodone/APAP 10-325MG [[place] 10-325] 1 tab PO DAILY PRN 04/20/18 rOPINIRole HCL [Requip] 4 mg PO HS 04/20/18 Aspirin 325 mg PO DAILY 12/31/18 Gabapentin [Neurontin] 300 mg PO BID 01/31/19 Meloxicam 15 mg PO DAILY 01/31/19 Multivitamins, Thera [Multivitamin (formulary)] 1 tab PO DAILY 01/31/19 Propranolol [Inderal] 10 mg PO TID 01/31/19 Furosemide [Lasix] 40 mg PO QAM 03/04/20 Levothyroxine Sodium [Synthroid] 75 mcg PO QAM 03/04/20 Spironolactone [Aldactone] 50 mg PO BID 03/04/20 HYDROcodone/APAP 10-325MG [[place] 10-325] 1 tab PO Q6HR PRN #28 tab 10/09/20
== END ==
LOC: PNWHC3 08:08
PROVIDERS: ATTEND Specialist
DX: M46.1 Sacroiliitis, not elsewhere classified (principal); M47.26 Other spondylosis with radiculopathy, lumbar region; M96.1 Postlaminectomy syndrome, not elsewhere classified; I10 Essential (primary) hypertension; Z86.73 Personal history of transient ischemic attack (TIA), and cerebral infarction without residual deficits; F17.210 Nicotine dependence, cigarettes, uncomplicated; Z79.82 Long term (current) use of aspirin; Z79.899 Other long term (current) drug therapy
CPT/HCPCS: 99211

== ENCOUNTER 2020-12-09 09:09 | Day surgery (SDC) | payer MEDICARE, OTHER ==
[2020-12-07 10:38] VITALS: BMI 26.6
[~2020-12-09 09:09] MED LIST changes: -DEXAMETHASONE SOD PHOSPHATE 4 MG/ML 1 ML VIAL IV ONE; -MIDAZOLAM 2 MG/2 ML VIAL IV PRN; -ONDANSETRON 4 MG/2 ML VIAL IVP ONE
[2020-12-09 09:29] VITALS: TEMP 96.9
[2020-12-09] MEDS ORDERED: PROPOFOL 10 MG/ML 20 ML VIAL IV ONE (10:29)
[2020-12-09] MEDS ORDERED: LIDOCAINE 1% INJ 10MG/ML (20 ML MDV) ONE (10:29)
[2020-12-09 10:45] VITALS: RESP 16
--- NOTE | 2020-12-09 10:50 | P.PCN ---
Date of Procedure: 12/09/20 Procedure(s) Performed: BRIEF HISTORY: Patient is a 60-year-old, pleasant, white male with history of esophageal varices scheduled for an upper endoscopy for variceal ligation.. PROCEDURE PERFORMED: Esophagogastroduodenoscopy with variceal ligation. PREOPERATIVE DIAGNOSIS: Follow-up esophageal varices. IV sedation per anesthesia. PROCEDURE: After informed consent was obtained, the patient was brought into the endoscopy unit. IV sedation was administered by Anesthesia under continuous monitoring. Initially the Olympus GIF-140 video endoscope was inserted into the mouth. Esophagus intubated without any difficulty. It was gradually advanced into the stomach and duodenum and carefully examined. The bulb and the second part of the duodenum appeared normal. The scope at this time was withdrawn to the stomach, adequately insufflated with air, and upon careful examination, mucosa of the antrum, body, cardia and the fundus changes consistent with portal hypertensive gastropathy.. The scope was then withdrawn into the esophagus. The GE junction was located at 39 cm from the incisors. T there were 2 large distal esophageal varices identified. There were no erosions or ulcerations seen. At this time the scope was withdrawn and the esophageal variceal ligation equipment was introduced the tip of the scope and esophagus intubated without any difficulty and was gradually advanced into the esophagus. Using suction 3 bands were deployed on the distal esophageal varices and the patient tolerated the procedure well. IMPRESSION: 1. Large distal esophageal varices status post recent ligation as described above. 2. Portal Hypertensive gastropathy. RECOMMENDATIONS: The findings of this examination were discussed with the patient as well as his family. He will continue with proper Terrell milligrams 3 times daily and will plan a repeat upper endoscopy in 6 months..
[2020-12-09 11:05] VITALS: BP 121/70; PULSE 68
== END 2020-12-09 11:35 | disposition home or self-care (01) ==
LOC: ORWHC2ENDO 09:09
PROVIDERS: ATTEND Internal Medicine Gastroenterology
DX: I85.00 Esophageal varices without bleeding (principal); K21.9 Gastro-esophageal reflux disease without esophagitis; K76.6 Portal hypertension; K74.60 Unspecified cirrhosis of liver; K31.89 Other diseases of stomach and duodenum; F17.200 Nicotine dependence, unspecified, uncomplicated; Z86.73 Personal history of transient ischemic attack (TIA), and cerebral infarction without residual deficits; Z79.891 Long term (current) use of opiate analgesic; Z79.899 Other long term (current) drug therapy; Z79.1 Long term (current) use of non-steroidal anti-inflammatories (NSAID); Z79.890 Hormone replacement therapy
CPT/HCPCS: 43244; J2001; J2704

== ENCOUNTER 2020-12-29 12:51 | Day surgery (SDC) | payer MEDICARE, OTHER ==
[2020-12-28 09:05] VITALS: BMI 27.8
[2020-12-29 13:10] VITALS: TEMP 97.6
[2020-12-29] MEDS ORDERED: LACTATED RINGERS 1,000 ML IV SCH (13:15)
[2020-12-29] MEDS ORDERED: MIDAZOLAM 2 MG/2 ML VIAL ONE (13:21)
[2020-12-29] MEDS ORDERED: TRIAMCINOLONE ACETONIDE 40 MG/ML 1 ML VIAL ONE (13:21)
[2020-12-29] MEDS ORDERED: fentaNYL (PF) 50 MCG/ML 2 ML AMP ONE (13:21)
[2020-12-29] MEDS ORDERED: IOPAMIDOL M200 10 ML VIAL ONE (13:21)
--- NOTE | 2020-12-29 13:33 | P.PCN ---
Date of Procedure: 12/29/20 Description of Procedure: PREOPERATIVE DIAGNOSIS: Sacroiliac joint dysfunction POSTOPERATIVE DIAGNOSIS: Sacroiliac joint dysfunction. PROCEDURES: 1. Right-sided Sacroiliac joint steroid injection #1 out of 2 2. Sacroiliac joint arthrogram. SURGEON: Glory Bose ANESTHESIA: Local and IV sedation : Versed 2 mg, and fentanyl 100 mg. EBL: None. Specimen removed: None Fluoroscopic image: saved to electronic medical records. PROCEDURE INDICATIONS: This patient with a history of chronic low back pain, and sacroiliac joint dysfunction. Patient tried conservative therapy. Came here for intervention management. PROCEDURE DESCRIPTION: The patient was seen and identified in the preoperative area. Risks, benefits, complications, and alternatives were discussed with the patient. The patient agreed to proceed with the procedure and signed the consent. IV was started, and vital signs were stable. Patient was taken to the OR and time out was completed. The patient was placed in the prone position on procedure table and a pillow was placed under the abdomen to reduce lumbar lordosis. The lumbosacral area was prepped and draped in the usual sterile fashion. Critical pause was taken. Vital signs were closely monitored during the procedure. For the right side, the fluoroscopic camera was placed in left oblique view and right SI joint lower pole was identified. Skin entry point was infiltrated with 1% lidocaine and 22-gauge 3.5 inch spinal needle was introduced into the inferior one-third of SI joint and after penetrating into the joint arthrogram was done. 0.5 ml of [id number] contrast was injected after negative aspiration for blood, and air and negative for paresthesia. Good spread of the contrast into the SI joint has been seen. Then again after negative aspiration of spinal fluid and blood and negative for neurological symptoms, 3 mL of a solution containing total 2 mL of 1% preservative-free lidocaine mixed with 40 mg of Kenalog was injected. Needle was withdrawn intact. Skin was cleansed, and bandages were applied. COMPLICATIONS: None. DISPOSITION / PLANS: The patient was placed in a supine position and transferred to the recovery area in a stable condition for observation and was discharged from the recovery room after meeting discharge criteria. Home discharge instructions given to the patient by the staff. The patient was reexamined prior to discharge. The patient will schedule for follow-up visit with the pain clinic in 4 weeks duration.
[2020-12-29 13:42] VITALS: PULSE 58
[2020-12-29] MEDS ORDERED: IV FLUID CONTINUATION 1,000 ML IV ONE (13:43)
[2020-12-29 13:52] VITALS: BP 101/54; RESP 16
--- NOTE | 2020-12-29 16:51 | FL ---
Fluoroscopy INDICATION: Pain FINDINGS: Fluoroscopy time: 5 seconds. Images obtained: 1. IMPRESSIONS: 1. Documentation of fluoroscopy.
== END 2020-12-29 14:13 | disposition home or self-care (01) ==
LOC: ORPAIN 12:51
DX: M53.3 Sacrococcygeal disorders, not elsewhere classified (principal); I10 Essential (primary) hypertension; K74.60 Unspecified cirrhosis of liver; Z86.73 Personal history of transient ischemic attack (TIA), and cerebral infarction without residual deficits; Z98.890 Other specified postprocedural states; Z96.641 Presence of right artificial hip joint; Z79.82 Long term (current) use of aspirin
CPT/HCPCS: J2250; J3301; J2001; J3010; Q9966; G0260; 27096

== ENCOUNTER → 2021-01-25 | Outpatient (CLI) | payer MEDICARE, OTHER ==
[2021-01-25 11:44] VITALS: BP 148/53; PULSE 61; RESP 18; TEMP 97.9
--- NOTE | 2021-01-26 13:41 | P.PN ---
Subjective Progress Note Date: 01/25/21 This is Follow up visit for this 60 years old male with a chronic history of [place] low back pain, he is diagnosed with lumbar radiculopathy and right sacroiliitis and right sacroiliac joint dysfunction, patient had multiple surgical interventions on his back, lumbar laminectomy and fusion multilevels, continued to have severe low back pain and the pain currently localized in the low back area mainly on the right side with radiation to the right buttock area, patient has some numbness and tingling sensation in his feet and he reported that he had peripheral neuropathy is happened after hip surgery, he reported that the pain is constant and increases with any activity, interfering with her quality of life, he denies any motor or sensory deficit, patient done physical therapy previously without any significant improvement, continue to use [place] 10/325 and Neurontin and he continued to have pain , previously we have done right side sacroiliac joint steroid injection patient reported that he had good pain relief stilts for more than 2 weeks -Constitutiona : Cooperative , not in acute distress . -HEENT : nech : supple , no Lymphadenopathy , normal thyroid size . : eyes : no ptosis , no icterus, no photophobia . - neurologic : Cranial nerve II to XII intact , no focal neurological deffecit . -psychatric : alert , oriented X 3 , appropriate affect , intact judgment and insight . -Lymphatic : no Lymphadenopathy . - musculoskeltal : Lumber spine moter stegnth lower extremities ,thigh and legs 5/5 Right side , 5/5 Left side deep tendon reflexes : normal Knee Jerk , normal ankle Jerk lumber facet Loading Test =positive Right , positive Left Range of motion of the lumbar spine Flexion 30 degrees, extension 10 degrees strait leg raising test = positive at 60 degree on the right side , negative on the left side Fabere test= negative bilaterally. Sever tenderness over the Sacroiliac joint on the Right. Gaenslen test= positive right . Seated flexion test= positive right . Distraction test= positive right Sacroiliac compression test= positive right Results Comments: MRI of the lumbar spine done in 2017= lumbar fusion at L5-S1 and lumbar facet arthropathy and foraminal stenosis at L3 4 L4 5 Assessment and Plan Plan: Assessment and plan=1-right sacroiliitis. 2-lumbar radiculopathy. 3-Failed back surgery syndrome lumbar area. 4-lumbar spondylosis with lumbar facet arthropathy. he benefits from repeate right sacroiliac joint steroid injection under fluoroscopy guidance. PQRS Measure Charge Sheet Measure #130: Documentation of Current Meds in Medical Chart: Patient's medications documented in chart Measure #226: Tobacco Use: Screen & Cessation Intervention: Pt screened for toba accounts executive use AND intervention given Measure #111: Pneumonia Vaccination: Pneumococcal vaccine NOT administered or previously given Measure #47: Advance Care Plan: Advance care planning discussed & documented, pt chose/unable to give Measure #412: Opioid Treatment Agreement: No documentation of signed opioid treatment agreement Measure #408: Opioid Therapy Follow-up Evaluation: Patient had NO f/u eval minimum every 3 months during opioid therapy Measure #317: Preventitive Care & Scrn High Bld Press & F/U: Normal blood pressure, f/u not required Measure #128: Body Mass Index (BMI) Screening & Follow-up: BMI documented ABOVE normal parameters - f/u documented Measure #131: Pain Assessment & Follow-up: Pain positive & plan documented, Follow-up scheduled Measure #431: Unhealthy Alcohol Use Preventative Care & Scrn: Patient not identified as an unhealthy alcohol user Mode of Arrival: Ambulatory Objective - Vital Signs Vital signs: Vital Signs Temp 97.9 F 01/25/21 11:21 Pulse 61 01/25/21 11:21 Resp 18 01/25/21 11:21 BP 148/53 01/25/21 11:21 Pulse Ox 96 01/25/21 11:21 Intake & Output 01/25/21 01/26/21 01/26/21 18:59 06:59 18:59 Weight 79.379 kg
== END ==
LOC: PNWHC3 10:55
PROVIDERS: ATTEND Specialist
DX: M46.1 Sacroiliitis, not elsewhere classified (principal); M47.26 Other spondylosis with radiculopathy, lumbar region; M96.1 Postlaminectomy syndrome, not elsewhere classified
CPT/HCPCS: 99211

== ENCOUNTER 2021-02-23 10:56 | Day surgery (SDC) | payer MEDICARE, OTHER ==
[2021-02-23 11:31] VITALS: RESP 20; TEMP 98.1
[2021-02-23] MEDS ORDERED: LACTATED RINGERS 1,000 ML IV ONE (11:55)
[2021-02-23] MEDS ORDERED: MIDAZOLAM 2 MG/2 ML VIAL ONE (12:42)
[2021-02-23] MEDS ORDERED: IOPAMIDOL M200 10 ML VIAL ONE (12:42)
[2021-02-23] MEDS ORDERED: LIDOCAINE 1% INJ 10MG/ML (20 ML MDV) ONE (12:42)
[2021-02-23] MEDS ORDERED: fentaNYL (PF) 50 MCG/ML 2 ML AMP ONE (12:42)
[2021-02-23] MEDS ORDERED: TRIAMCINOLONE ACETONIDE 40 MG/ML 1 ML VIAL ONE (12:42)
--- NOTE | 2021-02-23 12:51 | P.PCN ---
Date of Procedure: 02/23/21 Description of Procedure: PREOPERATIVE DIAGNOSIS: Sacroiliac joint dysfunction POSTOPERATIVE DIAGNOSIS: Sacroiliac joint dysfunction. PROCEDURES: 1. Bilateral Sacroiliac joint steroid injection #1 out of 2 2. Sacroiliac joint arthrogram. SURGEON: Glory Bose ANESTHESIA: Local and IV sedation : Versed 2 mg, and fentanyl 50 g. EBL: None. Specimen removed: None Fluoroscopic image: saved to electronic medical records. PROCEDURE INDICATIONS: This patient with a history of chronic low back pain, and sacroiliac joint dysfunction. Patient tried conservative therapy. Came here for intervention management. PROCEDURE DESCRIPTION: The patient was seen and identified in the preoperative area. Risks, benefits, complications, and alternatives were discussed with the patient. The patient agreed to proceed with the procedure and signed the consent. IV was started, and vital signs were stable. Patient was taken to the OR and time out was completed. The patient was placed in the prone position on procedure table and a pillow was placed under the abdomen to reduce lumbar lordosis. The lumbosacral area was prepped and draped in the usual sterile fashion. Critical pause was taken. Vital signs were closely monitored during the procedure. For the right side, the fluoroscopic camera was placed in left oblique view and right SI joint lower pole was identified. Skin entry point was infiltrated with 1% lidocaine and 22-gauge 3.5 inch spinal needle was introduced into the inferior one-third of SI joint and after penetrating into the joint arthrogram was done. 0.5 ml of [id number] contrast was injected after negative aspiration for blood, and air and negative for paresthesia. Good spread of the contrast into the SI joint has been seen. Then again after negative aspiration of spinal fluid and blood and negative for neurological symptoms, 3 mL of a solution containing total 2 mL of 1% preservative-free lidocaine mixed with 40 mg of Kenalog was injected. Needle was withdrawn intact. The entire procedure was repeated on the left side as above. Needle was withdrawn intact. Skin was cleansed, and bandages were applied. COMPLICATIONS: None. DISPOSITION / PLANS: The patient was placed in a supine position and transferred to the recovery area in a stable condition for observation and was discharged from the recovery room after meeting discharge criteria. Home discharge instructions given to the patient by the staff. The patient was reexamined prior to discharge. The patient will schedule for follow-up visit with the pain clinic in 4 weeks duration.
[2021-02-23] MEDS ORDERED: IV FLUID CONTINUATION 800 ML IV ONE (12:53)
--- NOTE | 2021-02-23 12:58 | FL ---
Fluoroscopy History: SI joint injection Nickolas SI joint injection. 2 sec fl. 2 images sent.
[2021-02-23] MEDS ORDERED: LACTATED RINGERS 1,000 ML IV SCH (13:00)
[2021-02-23 13:32] VITALS: BP 118/76; PULSE 60
== END 2021-02-23 13:23 | disposition home or self-care (01) ==
LOC: ORPAIN 10:56
PROVIDERS: ATTEND Anesthesiology
DX: M53.3 Sacrococcygeal disorders, not elsewhere classified (principal); K74.60 Unspecified cirrhosis of liver; I10 Essential (primary) hypertension
CPT/HCPCS: J2250; J3301; J2001 ×2; J3010; Q9966; G0260; 27096

== ENCOUNTER → 2021-03-17 | Outpatient (CLI) | payer MEDICARE, OTHER ==
[2021-03-17 19:13] LABS: Basophils # (A) 0.04 X 10*3/uL (0.00-0.10); Basophils % (A) 0.4 %; Eosinophils # (A) 0.28 X 10*3/uL (0.04-0.35); Eosinophils % (A) 3.1 %; HCT 42.7 % (39.6-50.0); HGB 14.7 g/dL (13.0-17.0); Lymphocytes # (A) 1.47 X 10*3/uL (0.90-5.00); Lymphocytes % (A) 16.5 %; MCH 33.6 pg (27.0-32.0); MCHC 34.4 g/dL (32.0-37.0); MCV 97.7 fL (80.0-97.0); Mean Platelet Volume 10.5 fL (9.5-12.2); Monocytes # (A) 0.75 X 10*3/uL (0.20-1.00); Monocytes % (A) 8.4 %; Neutrophils # (A) 6.36 X 10*3/uL (1.80-7.70); Neutrophils % (A) 71.3 %; Platelet Count 194 X 10*3/uL (140-440); RBC 4.37 X 10*6/uL (4.40-5.60); RDW 15.3 % (11.5-14.5); WBC 8.93 X 10*3/uL (4.50-10.00)
[2021-03-17 21:07] LABS: INR 0.95 (0.90-1.11); Prothrombin Time 10.5 sec (9.9-11.9)
[2021-03-17 21:48] LABS: African American GFR (CKD) 72.5 (60.0-200.0); Albumin 4.1 g/dL (3.8-4.9); Albumin/Globulin Ratio 1.22 (1.60-3.17); Anion Gap 13.8 mmol/L (10.00-18.00); BUN/Creat Ratio 19.51 Ratio (12.00-20.00); Carbon Dioxide 22.9 mmol/L (20.0-27.5); Globulin 3.4 g/dL (1.6-3.3); Non-African American GFR(CKD) 62.5 (60.0-200.0); Total Bilirubin 1.8 mg/dL (0.30-1.20); Total Protein 7.5 g/dL (6.2-8.2)
== END | disposition home or self-care (01) ==
LOC: LABWHC1 13:53
PROVIDERS: ATTEND Nurse Practitioner Family
DX: K70.30 Alcoholic cirrhosis of liver without ascites (principal)
CPT/HCPCS: 36415; 80053; 82105; 85025; 85610

== ENCOUNTER → 2021-03-22 | Outpatient (CLI) | payer MEDICARE, OTHER ==
[2021-03-22 11:00] VITALS: BP 125/65; PULSE 65; RESP 18; TEMP 98.3
--- NOTE | 2021-03-22 11:12 | P.PN ---
Subjective Progress Note Date: 03/22/21 Principal diagnosis: A 61 yr old male with a history of severe and chronic low back pain secondary to lumbar degenerative disc diseases and lumbar spondylosis with facet arthropathy presents today for a follow up of a SI joint injection. Pt underwent procedure on 02/23/2021 and experienced 70% pain relief. Currently, pain level is 3/10 on the left and 2/10 on the right. Pain is sharp/ shooting in the lower back towards the hips bilaterally. Pain is provoked by walking as it goes as high as a 10/10, so much that he relies on a walker for ambulation today. Pain is alleviated with rest, sitting, medications, heat and a stretching regimen. Interventional pain procedures completed include bilateral SI joint injection Jan, 2021 Patient is currently on [place] and Gabapentin Patient denies any side effects of the medication(s), denies excessive drowsiness or sleepiness, denies suicidal ideation and reports that the current pain medication is helping to control the pain and improve activities of daily living. Patient denies any motor or sensory deficits. Patient denies any fever or night sweats, denies any change in the bowel movements or urination. Physical Examination: -Constitutional: Cooperative. Not in acute distress . -HEENT: Neck is supple. No lymphadenopathy. No thyromegaly. Normal thyroid size. Eyes: No ptosis , no icterus, no photophobia. ENT: No auditory deficits. Normal oropharynx. No Thrush. - Respiratory: Chest clear to auscultations bilaterally. No wheezing. No rhonchi. - Cardiovascular: Regular rate and rhythm. S1 / S2 , no S3 , no S4. - Gastrointestinal: Abdomen soft no tenderness. Bowel sounds positive in all four quadrants. No organomegaly. - Genitourinary: Deferred. - Neurologic: Cranial nerve II to XII intact. No focal neurological deficits. - Psychatric: Alert & oriented x 3. Matching mood & appropriate affect. Judgment and insight intact. - Lymphatic: No Lymphadenopathy. - Musculoskeletal: Cervical spine: Muscle bulk/ tone/ strength in the bilateral upper extremities normal. Facet loading test cervical area positive. Lumbar spine: Use of walker in exam room today Motor bulk/ tone in the lower extremities , thigh and legs : 5/5 Bilateral lower extremity flexion strength 4/5 Deep tendon reflexes : Normal Knee Jerk. Normal Ankle Jerk . Lumbar Facet Loading Test positive Straight Leg Raise: positive at 30 degree right side/ left side Karla test: positive right side / left side Range of motion: Flexion of the lumbar spine <60 degrees Range of motion: Extension of the lumbar spine <20 degrees Severe tenderness over the Sacroiliac joint: right side / left side Assessment and plan: Chronic low back pain secondary to lumbar degenerative disc disease , lumbar spondylosis with facet arthropathy without myelopathy Recommendation of L SI joint injection Admits to aspirin use, and acknowledged understanding to discontinue aspirin 5 days prior to procedure Follow up with Orthopedics regarding lower extremity weakness and new onset walker use All patient questions answered MAPS reviewed and it was appropriate. I have spent 31 minutes on patient care today. Dr Howard was available by phone for the evaluation of this patient. The time was used to review the medical records including relevant urine studies and Prescription history (MAPs), review of the available imaging, evaluation and examination of the patient, coordination of care with the medical staff and if applicable referring physicians, as well as creation of the medical record Objective - Vital Signs Vital signs: Vital Signs Temp 98.3 F 03/22/21 10:45 Pulse 65 03/22/21 10:45 Resp 18 03/22/21 10:45 BP 125/65 03/22/21 10:45 Pulse Ox PQRS Measure Charge Sheet Mode of Arrival: Walker - Pain Location Back Non-Pharmacological Interventions: Inactivity Pharmacological Interventions: Scheduled Medication PQRS Narrative: Smoking Status Unknown if ever smoked Blood Pressure 125/65 Pain Intensity [Back] 8 Scale Used Numeric (1 - 10) Hx Alcohol Use (MH) No Home Medications: Ambulatory Orders Omeprazole [PriLOSEC] 20 mg PO DAILY 07/29/13 amLODIPine BESYLATE [Norvasc] 5 mg PO QAM 07/29/13 HYDROcodone/APAP 10-325MG [[place] 10-325] 1 tab PO DAILY PRN 04/20/18 rOPINIRole HCL [Requip] 4 mg PO HS 04/20/18 Aspirin 325 mg PO HS 12/31/18 Gabapentin [Neurontin] 300 mg PO BID 01/31/19 Propranolol [Inderal] 10 mg PO TID 01/31/19 Furosemide [Lasix] 40 mg PO QAM 03/04/20 Levothyroxine Sodium [Synthroid] 75 mcg PO QAM 03/04/20 Spironolactone [Aldactone] 50 mg PO BID 03/04/20 Multivit-Min/FA/Lycopen/Lutein [Centrum Silver Tablet] 1 each PO DAILY 12/07/20
== END ==
LOC: PNWHC3 10:02
PROVIDERS: ATTEND Physician Assistant Medical
DX: M51.36 Other intervertebral disc degeneration, lumbar region (principal); M47.816 Spondylosis without myelopathy or radiculopathy, lumbar region; G89.29 Other chronic pain
CPT/HCPCS: 99211

== ENCOUNTER → 2021-03-23 | Outpatient (CLI) | payer MEDICARE, OTHER ==
--- NOTE | 2021-03-23 13:16 | US ---
EXAMINATION TYPE: US liver DATE OF EXAM: 03/23/2021 COMPARISON: US Liver 07/31/2020 CLINICAL HISTORY: 61-year-old male K70.30 Alcoholic cirrhosis of liver. TECHNIQUE: Multiple sonographic images of the right upper quadrant are obtained. FINDINGS: EXAM MEASUREMENTS: Liver Length: 12.6 cm CBD: 0.6 cm, unchanged Right Kidney: 10.1 x 5.6 x 4.8 cm Pancreas: Obscured by bowel gas Liver: Heterogenous parenchyma with nodular hepatic contour. No focal lesion identified. Gallbladder: Surgically absent CBD: Stable, upper limits of normal Right Kidney: No hydronephrosis or masses seen IMPRESSION: 1. Cirrhotic morphology of the liver. No sonographic evidence for hepatoma. 2. Stable bile duct at 6 mm. Status post cholecystectomy.
== END | disposition home or self-care (01) ==
LOC: RADUSWWP 08:49
PROVIDERS: ATTEND Internal Medicine Gastroenterology
DX: K70.30 Alcoholic cirrhosis of liver without ascites (principal); Z90.49 Acquired absence of other specified parts of digestive tract
CPT/HCPCS: 76705

== ENCOUNTER 2021-04-06 11:30 | Day surgery (SDC) | payer MEDICARE, OTHER ==
[2021-04-06 12:13] VITALS: RESP 16; TEMP 98.4
[2021-04-06] MEDS ORDERED: LACTATED RINGERS 1,000 ML IV ONE ×2 (12:13→12:49)
[2021-04-06] MEDS ORDERED: fentaNYL (PF) 50 MCG/ML 2 ML AMP ONE (12:19)
[2021-04-06] MEDS ORDERED: MIDAZOLAM 2 MG/2 ML VIAL ONE (12:19)
[2021-04-06] MEDS ORDERED: methylPREDNISolone ACETATE 40 MG/ML 1 ML VIAL ONE (12:19)
[2021-04-06] MEDS ORDERED: ROPIVACAINE 5MG/ML 20ML VIAL ONE (12:19)
--- NOTE | 2021-04-06 12:29 | P.PCN ---
Date of Procedure: 04/06/21 Procedure(s) Performed: Procedure= Left sacroiliac joints steroid injection under fluoroscopy guidance (fluoroscopy image stored on file in the radiology Department ) Preoperative diagnosis= 1- Left sacroiliitis 2-left sacroiliac joint dysfunction 3-lumbar facet arthropathy Postoperative diagnosis=Same as preop Diagnosis . Complication = none Condition= stable Anesthesia= moderate sedation with intravenous Versed 2 mg , and fentanyl 100 micrograms . Indication for the procedure= patient complaining of low back pain , examination was positive for severe tenderness over the sacroiliac joints bilaterally and patient diagnosed with sacroiliitis, for this reason he was good candidate for sacroiliac joint steroid injection. Description of the procedure= procedure risk and benefits discussed with the patient, including but not limited, risk of infection and bleeding, and ALLERGIC reaction to the medication and not complete pain relief and patient agreed with the preceding patient taken to the operating room, placed in prone position or standard monitors applied to the patient then after induction of anesthesia back prepped with chlorhexidine 3 times ,. Then the left sacroiliac joint steroid injection done under strict sterile technique local infiltration of the skin and subcu interstitial at the location of the left sacroiliac joint then a 22-gauge Quincke Needle advanced slowly under fluoroscopy time placed in the left sacroiliac joint, needle placement confirmed with AP and oblique and lateral view then after appropriate needle placement confirmed and after negative aspiration 0.5% Ropivacaine 4 mL and 60 mg of Depo-Medrol injected in the left sacroiliac joint after negative aspiration patient tolerated the procedure well that any complications and she will follow up in clinic 3 weeks
[2021-04-06] MEDS ORDERED: IV FLUID CONTINUATION 500 ML IV ONE (12:49)
[2021-04-06 12:59] VITALS: BP 128/66; PULSE 91
--- NOTE | 2021-04-06 13:09 | FL ---
Fluoroscopy HISTORY: Pain 1 seconds fluoroscopy time supplied to the referring clinician. 1 intraoperative C-arm images docume nt the procedure. See dictated report from anesthesia.
== END 2021-04-06 13:13 | disposition home or self-care (01) ==
LOC: ORPAIN 11:30
PROVIDERS: ATTEND Specialist
DX: M46.1 Sacroiliitis, not elsewhere classified (principal); M53.3 Sacrococcygeal disorders, not elsewhere classified; M47.816 Spondylosis without myelopathy or radiculopathy, lumbar region; Z79.82 Long term (current) use of aspirin
CPT/HCPCS: J2250; J1030; J3010; J2795; G0260; 27096

== ENCOUNTER → 2021-04-26 | Outpatient (CLI) | payer MEDICARE, OTHER ==
--- NOTE | 2021-04-26 11:57 | P.PN ---
Subjective Progress Note Date: 04/26/21 Principal diagnosis: A 61 yr old male with a history of severe and chronic neck pain secondary to cervical degenerative disc diseases and spondylosis with facet arthropathy presents today for evaluation status post left SI joint injection and neck pain evaluation. Patient states he obtained 80% pain relief after his left SI joint injection. He currently complains of cervical pain, constant, dull in the right aspect of his neck with radiation of sharp pain to the right shoulder. Pain level is 10 out of 10 in intensity waxes and wanes throughout the day based on activity of the right upper extremity. Pain is alleviated with medications, heat, physical therapy with massage that ended November 2020, use of a walker for ambulation and rest. Interventional pain procedures completed include left SI joint injection Patient is currently on [place], Neurontin, mold back Patient denies any side effects of the medication(s), denies excessive drowsiness or sleepiness, denies suicidal ideation and reports that the current pain medication is helping to control the pain and improve activities of daily living. Patient denies any motor or sensory deficits. Patient denies any fever or night sweats, denies any change in the bowel movements or urination. Physical Examination: -Constitutional: Cooperative. Not in acute distress . -HEENT: Neck is supple. No lymphadenopathy. No thyromegaly. Normal thyroid size. Eyes: No ptosis , no icterus, no photophobia. ENT: No auditory deficits. Normal oropharynx. No Thrush. - Respiratory: Chest clear to auscultations bilaterally. No wheezing. No rhonchi. - Cardiovascular: Regular rate and rhythm. S1 / S2 , no S3 , no S4. - Gastrointestinal: Abdomen soft no tenderness. Bowel sounds positive in all four quadrants. No organomegaly. - Genitourinary: Deferred. - Neurologic: Cranial nerve II to XII intact. No focal neurological deficits. - Psychatric: Alert & oriented x 3. Matching mood & appropriate affect. Judgment and insight intact. - Lymphatic: No Lymphadenopathy. - Musculoskeletal: Cervical spine: + Crepitus with rotation and right lateral flexion Muscle bulk/ tone/ strength in the bilateral upper extremities normal. Facet loading test cervical area positive over R C5-C6, C6-C7 with jump reflex Lumbar spine: Motor bulk/ tone/ strength lower extremities , thigh and legs : 5/5 Deep tendon reflexes : Normal Knee Jerk. Normal Ankle Jerk . Vertebral body tenderness to palpation over Lumbar Facet Loading Test positive Straight Leg Raise: positive at 30 degrees right side/ left side Gaenslen's Test positive Sacral spine : Severe tenderness over the Sacroiliac joint: right side / left side Range of motion: Flexion of the lumbar spine <60 degrees Range of motion: Extension of the lumbar spine <20 degrees Gaenslen's Test positive Karla test: positive right side / left side Imaging: Cervical x-ray from 03/26/20 reviewed Assessment and plan: Chronic neck pain secondary to cervical degenerative disc disease and retrolisthesis of C5-C6 Recommendation of facet block of the medial branches of the right C5-C6, C6-C7 May need a series of injections, up until RFA, to obtain sufficient pain relief Risks, benefits of procedures discussed and patient verbalized understanding Denies anticoagulants use. Denies medical history of diabetes. All patient questions answered MAPS reviewed and it was appropriate. I have spent 31 minutes on patient care today. Dr Howard was available by phone for the evaluation of this patient. The time was used to review the medical records including relevant urine studies and Prescription history (MAPs), review of the available imaging, evaluation and examination of the patient, coordination of care with the medical staff and if applicable referring physicians, as well as creation of the medical record PQRS Measure Charge Sheet PQRS Narrative: Smoking Status Unknown if ever smoked Pain Intensity [Neck] 10 Hx Alcohol Use (MH) No Home Medications: Ambulatory Orders Omeprazole [PriLOSEC] 20 mg PO DAILY 07/29/13 amLODIPine BESYLATE [Norvasc] 5 mg PO QAM 07/29/13 HYDROcodone/APAP 10-325MG [[place] 10-325] 1 tab PO DAILY PRN 04/20/18 rOPINIRole HCL [Requip] 4 mg PO HS 04/20/18 Aspirin 325 mg PO HS 12/31/18 Gabapentin [Neurontin] 300 mg PO BID 01/31/19 Propranolol [Inderal] 10 mg PO TID 01/31/19 Furosemide [Lasix] 40 mg PO QAM 03/04/20 Levothyroxine Sodium [Synthroid] 75 mcg PO QAM 03/04/20 Spironolactone [Aldactone] 50 mg PO BID 03/04/20 Multivit-Min/FA/Lycopen/Lutein [Centrum Silver Tablet] 1 each PO DAILY 12/07/20
[2021-04-26 12:33] VITALS: BP 124/75; PULSE 59; RESP 18; TEMP 98.1
== END ==
LOC: PNWHC3 10:57
PROVIDERS: ATTEND Physician Assistant Medical
DX: G89.29 Other chronic pain (principal); M50.30 Other cervical disc degeneration, unspecified cervical region; M43.12 Spondylolisthesis, cervical region
CPT/HCPCS: 99211

== ENCOUNTER 2021-06-04 07:16 | Day surgery (SDC) | payer MEDICARE, OTHER ==
[2021-06-03 08:50] VITALS: BMI 25.8
[2021-06-04 07:40] VITALS: RESP 16; TEMP 97.5
[2021-06-04] MEDS ORDERED: fentaNYL (PF) 50 MCG/ML 2 ML AMP ONE (08:03)
[2021-06-04] MEDS ORDERED: ROPIVACAINE 5MG/ML 20ML VIAL ONE (08:03)
[2021-06-04] MEDS ORDERED: methylPREDNISolone ACETATE 40 MG/ML 1 ML VIAL ONE (08:03)
[2021-06-04] MEDS ORDERED: MIDAZOLAM 2 MG/2 ML VIAL ONE (08:03)
[2021-06-04] MEDS ORDERED: IV FLUID CONTINUATION 1,000 ML IV ONE (08:26)
--- NOTE | 2021-06-04 08:29 | P.PCN ---
Date of Procedure: 06/04/21 Procedure(s) Performed: PREOPERATIVE DIAGNOSIS: 1-Cervical Spondylosis with Facet Arthropathy.without myelopathy. POSTOPERATIVE DIAGNOSIS: Same as preoperative diagnosis. PROCEDURES: Diagnostic Right C5 , C6, C7 medial branch blocks, with fluoroscopic guidance (fluoroscopy images available in radiology department ) ( to target the facet joint at Right C5- 6, C6-7 ) ANESTHESIA: Monitored anesthesia care as per anesthesia department. EBL: Minimal PROCEDURE INDICATION: The patient with neck pain secondary to cervical arthropathy unresponsive to more conservative treatments. PROCEDURE DESCRIPTION / TECHNIQUE: The patient was seen and identified in the preoperative area. Risks, benefits, complications, and alternatives were discussed with the patient, the patient agreed to proceed with the procedure and signed the consent. IV was started. Vital signs remained stable throughout the procedure. Patient was taken to the OR and time out was completed. The patient was placed in the Lateral position ( right side up )on the procedure table. A pillow was placed under the patients chest to increase the cervical interlaminar space. The cervical area was prepped and draped in the usual sterile fashion. Critical pause was taken. Vital signs were closely monitored during the procedure. Conscious sedation was used during the procedure to decrease patients anxiety. Using cross-table lateral fluoroscopy, the centroid of the trapezoid of right C5, C6, C7 was identified, marked, and localized with 1% lidocaine 1 ml at each level for skin and Sub Q infiltrations . Subsequently, a 25 G spinal needle was advanced guided by fluoroscopy to the centroid of the trapezoid of Right, C5, C6, C7 . Roscoe tip position was confirmed at the centroid of the trapezoids of Right C5 ,C6, C7 with anteroposterior fluoroscopy. Subsequently, 1.5 ml of preservative-free Ropivacaine 0.5% mixed with Depo- Medrol 40 mg and half ml of the mixture was injected after negative aspiration for blood and CSF. [place] was then removed intact . COMPLICATIONS: No acute complications. DISPOSITION / PLANS: The patient was placed in a supine position and transferred to the recovery area in a stable condition for observation and was discharged from the recovery room after meeting discharge criteria. Home discharge instructions given to the patient by the staff. The patient was reexamined prior to discharge. The patient will schedule a follow up in the clinic in 2-4 weeks. note= patient placed in lateral position, right side up, because and prone and supine position was not able to visualize C6, or C7 vertebra, the best option is to do lateral position
--- NOTE | 2021-06-04 08:36 | FL ---
EXAMINATION TYPE: FL guided pain mgmt statistic DATE OF EXAM: 06/04/2021 CLINICAL HISTORY: Neck pain. TECHNIQUE: Fluoroscopy. COMPARISON: None. FINDINGS: Fluoroscopic guidance was provided during pain relief procedure performed by Dr. Howard . A total of 11 seconds of fluoroscopic time was utilized during the procedure and 1 spot images are acquired. Single limited acquired shows needle localization at several levels near lower cervical s pine. IMPRESSION: As Above.
[2021-06-04 08:41] VITALS: BP 108/61; PULSE 70
== END 2021-06-04 08:56 | disposition home or self-care (01) ==
LOC: ORPAIN 07:16
PROVIDERS: ATTEND Specialist
DX: M47.812 Spondylosis without myelopathy or radiculopathy, cervical region (principal)
CPT/HCPCS: 64490; 64491; J2250; J1030; J3010; J2795